=== PATIENT | female | born 1955 | race Caucasian/White ===

== ENCOUNTER → 2016-10-27 | Outpatient (CLI) | payer OTHER ==
[~2016-10-27] MED LIST: ACIDOPHILUS1 EAC3 PO; ASPIRIN81 M2 PO; ASTELIN30 ML; BENICAR HCT 201 EACH PO; BIOTIN2500 MCG PO; CELEBREX 200 M200 M1 PO; CENTRUM SILVER1 EAC4 PO; COLACE100 MG PO; CYMBALTA60 MG PO; DEXILANT60 MG PO; DHEA50 MG PO; ENABLEX 7.5 MG7.5 M1 PO; ENABLEX15 MG PO; ESTRACE; ESTRING1 EACH; ESTRING1 EACH VAG; FENTANYL PATCH75 MCG; FISH OIL 1,0001 EAC5; FOLIC ACID1 MG PO; HYDROCODON-ACE1 EAC5 PO; LEXAPRO20 MG PO; LIPITOR10 MG PO; LIPITOR20 MG PO; LOMOTIL TABLET1 EACH; LYRICA 75 MG CA75 MG PO; METHOTREXATE 22.5 M1 PO; METHOTREXATE 22.5 MG; METHOTREXATE 22.5 MG PO; MS CONTIN15 MG PO; MULTI-VITAMIN1 EAC5 PO; NORCO 10-325 T1 EACH PO; OXYCODONE HCL 55 MG PO; OXYCODONE HCL10 MG PO; OXYCODONE HCL15 MG PO; OXYCODONE HCL5 M1 PO; OXYCONTIN20 M1 PO; PERCOCET 10-321 EACH PO; PHENERGAN 25 MG25 M1 PO; PREDNISONE 5 MG5 M1 PO; REMICADE 1100 MG/VIA IV; TRAMADOL 50 MG50 MG PO; ULTRAM 50MG TAB50 MG PO; VICODIN 5-5001 EACH PO; VITAMIN D1000 UNI1; VITAMIN D32000 UNI1 PO; VITAMIN E400 UNI2 PO; VITAMIN E400 UNI6 PO; VITAMINC500 PO; XELJANZ5 MG PO; [UNRECOGNIZED DRUG - OTHER] VAG
== END ==
LOC: RAD 10:38
DX: M51.26 Other intervertebral disc displacement, lumbar region (principal)

== ENCOUNTER → 2019-05-05 | Outpatient (CLI) | payer OTHER | LOC: CAT 14:52 | DX: Z13.6 Encounter for screening for cardiovascular disorders (principal); E78.00 Pure hypercholesterolemia, unspecified; I25.10 Atherosclerotic heart disease of native coronary artery without angina pectoris ==

== ENCOUNTER 2019-10-13 16:35 | Inpatient (IN) | payer OTHER ==
[~2019-10-13] VITALS: Ht 170.2 cm; Wt 68.9 kg
--- NOTE | ~2019-10-13 | O ---
[facility] [place] [address] OPERATIVE REPORT Name: JOYA BOND Room #: 150-2 ADM IN M.R.#: [id number] Admission: 10/24/19 Attend Phys: Fransisco Perez MD Discharge: Date of : 51 Report #: [id number] THIS REPORT FOR: cc: Giancarlo Medina MD, Mark S. MD Abraham,Fransisco Lott MD ~ CC: Giancarlo Perez DATE OF SERVICE: 10/24/2019 PREOPERATIVE DIAGNOSIS: Left hip stage 4 avascular necrosis. POSTOPERATIVE DIAGNOSIS: Left hip stage 4 avascular necrosis. PROCEDURE: Left total hip arthroplasty. SURGEON: Fransisco Perez MD. COMMERCIAL GREEN BUILDING ARCHITECT: Saloni Pop PA-C. INDICATIONS FOR COMMERCIAL GREEN BUILDING ARCHITECT: Throughout the case, extensive retraction and manipulation of the hip including dislocation and reduction was required. This was afforded to me by my investigative assistant. ANESTHESIA: General. IMPLANTS: Stoner and Nephew size 11 high offset Synergy press fit stem, a size 52 R3 acetabular cup with 1 acetabular screw, a size 36+0 Oxinium head. ESTIMATED BLOOD LOSS: 150 mL. COMPLICATIONS: None. SPECIMENS: None. CONDITION UPON LEAVING THE OPERATING ROOM: Stable. INDICATIONS FOR PROCEDURE: The patient is a 64-year-old female with left hip stage 4 avascular necrosis. She has had increasingly worsening of her pain and failed conservative measures. After discussion with her, she elected for left total hip arthroplasty. DESCRIPTION OF PROCEDURE: Risks, benefits, alternatives, complications were discussed in detail with the patient including but not limited to risk of anesthesia, risk of damage to nerves, arteries, blood vessels, risk for [facility] [address] [place] [address] OPERATIVE REPORT Name: JOYA BOND Room #: 150-2 ADM IN M.R.#: [id number] Admission: 10/24/19 Attend Phys: Fransisco Perez MD Discharge: Date of : 51 Report #: [id number] infection, bleeding, risk for continued hip pain, leg length discrepancy, instability and need for reoperation. Informed consent was obtained from the patient. Left hip was appropriately marked in the preoperative holding area. IV Ancef was given for preoperative antibiotics. She was brought to the operating room and placed in supine position on operating room table. General anesthesia was induced without complication. She was then placed in the right lateral decubitus position with the left hip uppermost. Left hip and lower extremity were prepped and draped in normal sterile fashion. Timeout was performed properly identifying the patient and procedure as well as the instrumentation and implants. All in the operating room were in agreement. Standard posterior approach to the left hip was made with 10 blade through the skin. Dissection was taken down to fascia with Bovie cautery and Bain elevator was used to clean the fascia anteriorly and posteriorly. Fresh 10 blade was used to make a fascial incision. This was taken proximally and distally with curved Martínez scissor. Charnley retractor was placed. Trochanteric bursa was taken down with Bovie cautery. Piriformis tendon was identified, tagged and taken down with Bovie. Short external rotators were also taken down with Bovie cautery. Capsulotomy was made and capsule ends were tagged for later repair. The hip was dislocated. There was no obvious avascular necrosis of the femoral head with severe flattening of the femoral head. Femoral neck cut was made 1 cm proximal to lesser trochanter based on preoperative templating and the femoral head was removed. Deep acetabular retractors were placed. Labrum was removed sharply. Pulvinar was removed with Bovie cautery. Acetabulum was then sequentially reamed up to a size 52, at which point, there was excellent bleeding cancellous bone. A size 51 trial cup was placed, found to have a good fit. A final size 52 R3 acetabular cup was placed and seated. One acetabular screw was placed for backup fixation and a polyethylene liner for a 36 head was placed. Attention was then turned to the femur. A single Accord cable was placed above the level of the lesser trochanter for prophylactic fixation and the femur was reamed and broached up to a size 11. Size 11 broach was stable, was trialed with a high offset neck and a 36+0 head. Hip was reduced, taken through range of motion, found to be stable, found to have equal leg lengths. The hip was dislocated. Broach was removed and final size 11 high offset Synergy press fit stem was placed. Hip was reduced, taken through range of motion, found to be stable, found to have equal leg lengths with the 36+0 head. Hip was dislocated and a final 36+0 Oxinium head was placed. Hip was reduced, taken through range of motion, found to be stable, found to have equal leg lengths. The hip was thoroughly irrigated with normal saline. Periarticular injection consisting of morphine, ropivacaine, epinephrine and Toradol was placed around the hip joint capsule. A gram of vancomycin was placed deep in the hip. The capsule and piriformis were repaired with 0 FiberWire. Fascia was closed with 0 Vicryl, skin was closed with 2-0 Vicryl, 3-0 Monocryl. Karen [address] [address] OPERATIVE REPORT Name: JOYA BOND Room #: 150-2 [facility] IN .R.#: [id number] Admission: 10/24/19 Attend Phys: Fransisco Perez MD Discharge: Date of : 51 Report #: [id number] and a VIKTORIA dressing was applied. The patient tolerated this procedure well and went to recovery room under care of anesthesia postoperatively. By: [id number] Fransisco Perez MD /nt
[~2019-10-13 16:35] MED LIST changes: +AMLODIPINE-OLM1 EAC1 PO; +NORCO 5-325 TA1 EAC1 PO
[2019-10-18 11:17] LABS: HEMATOCRIT 35.6 % (37.0-47.0); HEMOGLOBIN 11.8 gm/dL (12.0-15.0); MCH 31.8 pg (26.0-34.0); MCHC 33.1 g/dL (28.0-37.0); MCV 96.2 fL (80.0-100.0); RBC 3.7 mil/uL (4.20-5.00); RDW 14.3 % (10.5-14.5); WBC 3.5 thou/uL (4.0-11.0)
[2019-10-18 11:19] LABS: URINE BILIRUBIN NEGATIVE (Negative); URINE BLOOD NEGATIVE (Negative); URINE CLARITY CLEAR; URINE COLOR YELLOW; URINE GLUCOSE-RANDOM* NEGATIVE (Negative); URINE KETONES TRACE (Negative); URINE LEUKOCYTES-REFLEX NEGATIVE (Negative); URINE NITRITE-REFLEX NEGATIVE (Negative); URINE PROTEIN (DIPSTICK) NEGATIVE (Negative); URINE SPECIFIC GRAVITY 1.025 (1.005-1.035); URINE UROBILINOGEN 0.2 E.U./dl (0.2-1.0)
[2019-10-18 11:43] LABS: ALBUMIN 3.9 g/dL (3.4-5.0); CREATININE 0.9 mg/dL (0.6-1.0); POTASSIUM 4.2 mmol/L (3.5-5.1); TOTAL BILIRUBIN 0.7 mg/dL (<0.1-1.0); TOTAL PROTEIN 6.6 g/dL (6.4-8.2)
[2019-10-24 00:25] VITALS: BP 136/61
[2019-10-24 08:11] VITALS: BP 141/61
[2019-10-24 16:26] VITALS: BP 117/59
--- NOTE | 2019-10-24 17:55 | NUR ---
PATIENT ADMITTED FROM OR, LEFT TOTAL HIP. VIKTORIA DRESSING IN PLACE. PT/GALINA HERE UPON ARIVAL TO THE UNIT, WORKED WITH PATIENT. PATIENT C/O PAIN WITH LEFT HIP AREA. PATIENT GIVEN OXYCODONE 1 TABLET, PAIN 7/10. PATIENT HAS RIGHT FOREARM IV IN PLACE, WILL START D51/2 NS AT 100CC/HR. VSS. ADMISSION DONE. WILL CONTINUE TO MONITOR.
--- NOTE | 2019-10-24 18:38 | NUR ---
ASSUMED CARE OF THE PATIENT AT 0715, PATIENT ALERT AND ORIENTED. PATIENT C/O PAIN WITH NECK, AND UPPER BACK AREA. TRAMADOL 1 TABLET GIVEN THIS SHIFT. RIGHT AC IV WITH NS AT 100CC/HR. UP WITH GB AND WALKER TO BSC. WILL CONTINUE TO MONITOR.
[2019-10-24 19:38] VITALS: BP 100/52
--- NOTE | 2019-10-25 04:05 | NUR ---
RECIEVED CARE OF THIS PATIENT AT 1900. PATIENT ALERT AND ORIENTED X4. UP WITH ASSIST TO BATHROOM. C/O PAIN, MED GIVEN WITH GOOD RELIEF. DRESSING ON L HIP D/I. ICE PACK APPLIED. IV IN RFA WITH FLUIDS INFUSING. SLEPT MOST OF NIGHT.
[2019-10-25 04:43] VITALS: BP 141/67
[2019-10-25 05:47] LABS: HEMATOCRIT 27.8 % (37.0-47.0); HEMOGLOBIN 9.3 gm/dL (12.0-15.0); MCH 31.7 pg (26.0-34.0); MCHC 33.6 g/dL (28.0-37.0); MCV 94.4 fL (80.0-100.0); RBC 2.94 mil/uL (4.20-5.00); RDW 13.5 % (10.5-14.5); WBC 6.5 thou/uL (4.0-11.0)
[2019-10-25 07:35] VITALS: BP 157/84
--- NOTE | 2019-10-25 12:41 | NUR ---
PT ADMITTED RELATED TO LT TOTAL HIP REPLACEMENT. CM REVIEWED CHART AND SPOKE WITH CARE TEAM. CM CALLED AND SPOKE WITH PT AT BEDSIDE THIS DAY. PT APPEARED TO BE A&O X4. CM ROLE INTRODUCED. PT INDICATED SHE LIVES IN A HOUSE ALONE WITH 3 STEPS TO ENTER AND NONE INSIDE. PT INDICATED SHE HAS A 4WW WITH A SEAT AND A CANE FOR USE AT HOME. PT INDICATED SHE HAD BEEN INDEPENDENT WITH [employer]. PT INDICATED THAT SHE IS ESTABLISHED WITH OP PT TOMORROW. PT INDICATED THAT HER FRIEND WILL BE POVIDING HER TRANSPORT HOME AND WILL BE STAYING WITH HER UPON DC FOR A FEW DAYS. CM SPOKE WITH PT ABOUT MAYBE NEEDING A FWW FOR HOME US. PT IS RECEPTIVE TO PROVIDER PLUS ISSUEING A FWW IF RECOMMENDED. IT IS ANTICIPATED THAT PT WILL DC HOME THIS DAY. CM TO FOLLOW INDICATED WITH DC PLANNING.
--- NOTE | 2019-10-25 14:08 | NUR ---
Assumed care of pt at 0700. Pt a&ox4. Pain controlled with prn pain meds. Up SBA with walker and gait-belt. Will need home walker. Ice pack in place. CHARBEL hose and SCDs in place. PT/OT on the case. Pt will discharge to home after walker is delivered. Fall precautions in place. Will continue to monitor.
[2019-10-25 14:45] VITALS: BP 157/84
== END 2019-10-25 16:00 | disposition home or self-care (01) | DRG 470 ==
LOC: PRE 16:35 → 4S 10-24 07:39 → TBA 10-24 07:39 → PRE 10-24 10:09 → 4S 10-24 15:34 → PRE 11-03 11:06
PROVIDERS: ADMIT Orthopaedic Surgery
PROC: 0SRB06A Replacement of Left Hip Joint with Oxidized Zirconium on Polyethylene Synthetic Substitute, Uncemented, Open Approach (ICD-10-PCS; principal; 2019-10-24)
DX: M87.88 Other osteonecrosis, other site (principal); Z88.8 Allergy status to other drugs, medicaments and biological substances
CPT/HCPCS: 10102; 50010; 50101; 50382; 50414; 53000; 53078; 53368; 54118; 56524; 56527; 56528; 56530; 57095; 57103; 57496; 62110; 62900; 70005

== ENCOUNTER 2020-01-30 09:58 | Observation (INO) | payer OTHER ==
[2020-01-24 12:18] LABS: HEMATOCRIT 31.4 % (37.0-47.0); HEMOGLOBIN 10.4 gm/dL (12.0-15.0); MCH 29.9 pg (26.0-34.0); MCV 90.5 fL (80.0-100.0); RBC 3.47 mil/uL (4.20-5.00); RDW 17.6 % (10.5-14.5); WBC 5.2 thou/uL (4.0-11.0)
[2020-01-24 12:46] LABS: PROTIME 10.3 Seconds (9.3-11.4)
[2020-01-24 13:09] LABS: CREATININE 0.8 mg/dL (0.6-1.0); POTASSIUM 4.6 mmol/L (3.5-5.1)
[2020-01-24 13:37] LABS: URINE BILIRUBIN NEGATIVE (Negative); URINE BLOOD NEGATIVE (Negative); URINE CLARITY CLEAR; URINE COLOR YELLOW; URINE GLUCOSE-RANDOM* NEGATIVE (Negative); URINE KETONES NEGATIVE (Negative); URINE NITRITE-REFLEX NEGATIVE (Negative); URINE PROTEIN (DIPSTICK) NEGATIVE (Negative); URINE UROBILINOGEN 0.2 E.U./dl (0.2-1.0)
[2020-01-24 13:49] LABS: URINE LEUKOCYTES-REFLEX 1+ (Negative)
[2020-01-24 14:43] LABS: CASTS None Seen /LPF (None Seen); SQUAMOUS 0-3 Few /LPF (0-3)
[2020-01-24 14:44] LABS: BACTERIA-REFLEX None Seen /HPF (None Seen); CRYSTALS None Seen /LPF (None Seen); URINE RBC 0-2 Rare /HPF (0-2); URINE WBC-REFLEX 0-5 Rare /HPF (0-5)
[~2020-01-30] VITALS: Ht 170.2 cm; Wt 68.9 kg
--- NOTE | ~2020-01-30 | O ---
[facility] [place] [address] OPERATIVE REPORT Name: JOYA BOND Room #: 440-P [facility] IN M.R.#: [id number] Admission: 02/06/20 Attend Phys: Fransisco Perez MD Discharge: Date of : 51 Report #: [id number] THIS REPORT FOR: cc: Giancarlo Medina MD, Mark S. MD Abraham,Fransisco Lott MD ~ CC: Giancarlo Perez DATE OF SERVICE: 02/06/2020 PREOPERATIVE DIAGNOSIS: Right knee valgus osteoarthritis. POSTOPERATIVE DIAGNOSIS: Right knee valgus osteoarthritis. PROCEDURE: Right total knee arthroplasty using Navio robotic medical technician assistant. SURGEON: Fransisco Perez MD. SHOP STEWARD: Saloni Pop PA-C. INDICATIONS FOR SHOP STEWARD: Throughout the case, extensive retraction and manipulation of the knee was required. This was afforded to me by my medical technician assistant. ANESTHESIA: LMA with an adductor canal block. IMPLANTS: Stoner and Nephew size 6 Journey II BCS cobalt chrome femur, a size 4 tibia, size 9 constrained polyethylene and size 32 patella. TOURNIQUET TIME: 47 minutes. ESTIMATED BLOOD LOSS: 25 mL. COMPLICATIONS: None. SPECIMENS: None. CONDITION UPON LEAVING THE OPERATING ROOM: Stable. INDICATIONS FOR PROCEDURE: The patient is a 65-year-old female with severe right knee valgus and osteoarthritis. She failed conservative measures for this and after discussion with her, she elected for right total knee arthroplasty. DESCRIPTION OF PROCEDURE: Risks, benefits, alternatives, and complications were discussed in detail with the patient including but not limited to risk of anesthesia, risk of damage to nerves, arteries, blood vessels, risk for [facility] [address] [place] [address] OPERATIVE REPORT Name: JOYA BOND Room #: 440-P [facility] IN ..#: [id number] Admission: 02/06/20 Attend Phys: Fransisco Perez MD Discharge: Date of : 53 Report #: [id number] infection, bleeding, risk for continued knee pain, need for reoperation. Informed consent was obtained from the patient. Right knee was appropriately marked in the preoperative holding area. IV Ancef was given for preoperative antibiotics. She was brought to the operating room and placed in supine position on operating room table. LMA anesthesia was induced without complication. Tourniquet was placed on the right thigh. Right lower extremity was prepped and draped in normal sterile fashion. Timeout was performed properly identifying the patient and procedure as well as the instrumentation and implants. All in the operating room were in agreement. Right lower extremity was exsanguinated, tourniquet was inflated. Tourniquet time was 47 minutes. Standard midline approach to the knee was made with 10 blade through the skin. Dissection was taken down sharply to the fascia and deep flaps were developed medially and laterally. Fresh 10 blade was used to make a medial parapatellar arthrotomy and the knee was inspected. There was severe lateral compartment osteoarthritis with moderate medial and patellofemoral involvement. ACL and PCL were removed sharply. Reference pins were placed in the femur and the tibia. The knee was then digitally mapped using the [employer] robotic system. Intraoperative plan was made and we sized the size 6 femur and a size 4 tibia and a 10 spacer. After acceptance of the intraoperative plan, the distal femoral cut was made with a Navio bur. Distal femoral cutting block was pinned in place. Anterior, posterior and chamfer cuts were made. Attention was turned to the tibia. Remainder of the menisci removed with Bovie cautery. Tibial resection guide was pinned in place using the Navio for placement and tibial resection was made. Flexion and extension gaps were then checked and found to have good balance laterally in flexion and extension. She was loose medially. It was felt we could make up for this with a constrained liner. Tibia was sized, found to be a size 4. Size 4 tibial trial was placed, pinned and punched. A size 6 femoral trial was placed and box cut was made. This was then trialed with a size 9 constrained polyethylene. Knee was taken through range of motion, found to have 1-2 millimeter of laxity medially and laterally throughout range of motion of the knee. A 9 mm was resected from the posterior surface of the patella and a size 32 patellar trial button was placed. Knee was taken through range of motion, found to be stable, found to have good patellar tracking. Trial components were removed. Bony ends were thoroughly irrigated with normal saline. A final size 4 tibia, size 6 Journey II BCS cobalt chrome femur and a size 32 patella were cemented in place using standard cementation techniques. While the cement cured, a periarticular injection consisting of morphine, ropivacaine, epinephrine and Toradol was placed around the knee joint capsule. After the cement cured, tourniquet was deflated. Hemostasis was obtained with Bovie cautery. Final size 9 constrained polyethylene was placed. A gram of vancomycin was placed deep in the joint. Fascia was closed with 0 Vicryl, skin was closed with 2-0 Vicryl, skin staple and a VIKTORIA dressing was [address] [address] OPERATIVE REPORT Name: JOYA BOND Room #: 440-P [facility] IN .R.#: [id number] Admission: 02/06/20 Attend Phys: Fransisco Perez MD Discharge: Date of : 51 Report #: [id number] applied. The patient tolerated this procedure well and went to recovery room under care of anesthesia postoperatively. By: [id number] Fransisco Perez MD /nt
[~2020-01-30 09:58] MED LIST changes: +CALCIUM WITH V1 EAC1 PO; +CEFDINIR300 MG PO; +FIBER500 MG PO; -LYRICA 75 MG CA75 MG PO; +LYRICA150 MG PO; +MUPIROCIN22 GM NARES
[2020-02-06] VITALS (8 sets, daily range): BP systolic 101–132; BP diastolic 47–62
--- NOTE | 2020-02-06 18:24 | NUR ---
PATIENT ARRIVED TO UNIT AT 1555. A&OX4, DENIES PAIN. USED BEDPAN BUT UNABLE TO VOID. VOICES NO NEEDS. ADMISSION HX AND EDUCATION COMPLETE. VOICES NO OTHER NEEDS AT THIS TIME
--- NOTE | 2020-02-06 19:50 | NUR ---
PATIENT ADMITTED FROM OR WITH RIGHT TOTAL KNEE, PATIENT HAS VIKTORIA DRESSING, KNEE HIGH CHARBEL ARRIOLA, SCD'S, POLAR PACK. REGULAR DIET ORDERED. PATIENT DENIES PAIN. ADMISSION COMPLETED REPORT GIVEN TO SHOSHANA/RN.
[2020-02-07 03:43] VITALS: BP 150/56
[2020-02-07 05:12] LABS: HEMATOCRIT 23.8 % (37.0-47.0); HEMOGLOBIN 7.8 gm/dL (12.0-15.0); MCHC 32.7 g/dL (28.0-37.0); MCV 88.8 fL (80.0-100.0); RBC 2.68 mil/uL (4.20-5.00); RDW 17.3 % (10.5-14.5); WBC 5.8 thou/uL (4.0-11.0)
--- NOTE | 2020-02-07 05:28 | NUR ---
ASSUMED CARE OF PT AT 1900. PT IS A/O X4. DRSG IS C/D/I. SCD'S, CHARBEL HOSE, AND POLAR PACK ARE IN PLACE. C/O PAIN. PRN PAIN MEDICATION GIVEN DIRECTED. AT THIS TIME, PT IS CURRENTLY LYING IN HER BED AND APPEARS TO BE SLEEPING. WILL CONTINUE TO MONITOR.
[2020-02-07 05:54] LABS: CALCIUM 8.2 mg/dL (8.5-10.1); POTASSIUM 4.4 mmol/L (3.5-5.1)
--- NOTE | 2020-02-07 09:32 | NUR ---
ASSESSMENT: CM REVIEWED CHART AND SPOKE WITH PATIENT. PT IS HERE DUE TO R TKR. PT REPORTS LIVING IN A HOUSE ALONE AND HAS ABOUT 3 STEPS TO ENTER AND NO STEPS ONCE INSIDE. PT REPORTS THAT SHE HAS ALL THE EQUIPTMENT AT HOME THAT SHE WILL NEED INCLUDING A FWW AND CANE SHE REPORTS. SHE ALSO HAS OUTPATIENT THERAPY ARRANGED AT [facility]. PT REPORTS DOING WELL AND DOES NOT FEEL SHE WILL HAVE ANY NEEDS FROM CM. PLANS ARE FOR POSSIBLE DISCHARGE TODAY IF PATIENT PASSES PHYSICAL THERAPY. CM WILL CONTINUE TO FOLLOW TO ASSIST NEEDED.
--- NOTE | 2020-02-07 12:50 | NUR ---
ASSUMED CARE OF PATIENT AT SHIFT CHANGE. ASSESSMENT CHARTED. MEDICATIONS GIVEN PER MAR. VSS. PATIENT IS A&OX4 AND PLEASANT. TODAY IS POSTOP DAY 1. PATIENTS PAIN IS WELL CONTROLLED. NO C/O PAIN AT THE MOMENT. PATIENT GOT UP AND AMBULATED WITH PT AND TOLERATED WELL. PATIENT VOIDED IN TOILET WITH NO ISSUES. PT TO FURTHER WORK WITH PATIENT LATER TODAY. IV FLUIDS INFUSING ON L FA; INTACT W NO S/S OF INFILTRATION OF PHLEBITIS. CHARBEL HOSE IN PLACE & POLAR PACK IN PLACE. VIKTORIA DRESSING C/D/I. FALL PRECAUTIONS IN PLACE; PATIENT CALLS OUT APPROPRIATELY. MAY D/C TODAY; D/C PENDING. WILL CONTINUE TO MONITOR AND FOLLOW POC.
[2020-02-07 15:33] VITALS: BP 150/56
[2020-02-07 15:37] VITALS: BP 150/56
[2020-02-07 16:31] VITALS: BP 150/56
[2020-02-07 16:33] VITALS: BP 150/56
== END 2020-02-07 16:39 | disposition home or self-care (01) ==
LOC: PRE 09:58 → 4S 02-06 10:05 → TBA 02-06 10:05 → 4S 02-06 10:05 → PRE 02-06 10:57 → 4S 02-06 16:15
PROVIDERS: Hospitalist; ADMIT Orthopaedic Surgery; ATTEND Orthopaedic Surgery
DX: M17.11 Unilateral primary osteoarthritis, right knee (principal); M21.061 Valgus deformity, not elsewhere classified, right knee; M54.9 Dorsalgia, unspecified; L03.115 Cellulitis of right lower limb; M87.852 Other osteonecrosis, left femur; Z79.899 Other long term (current) drug therapy
CPT/HCPCS: 10102; 50010; 50101; 50415; 50954; 51130; 51225; 51320; 51412; 52001; 52282; 53000; 53078; 53370; 56527; 56528; 57095; 57103; 57110; 57127; 57180; 58239; 62110; 62900; 70005

== ENCOUNTER → 2020-02-01 | Outpatient (CLI) | payer OTHER | LOC: LAB 11:42 | PROVIDERS: ATTEND Student in an Organized Health Care Education/Training Program | DX: Z01.812 Encounter for preprocedural laboratory examination (principal); Z11.59 Encounter for screening for other viral diseases ==

== ENCOUNTER → 2020-03-07 | Outpatient (CLI) | payer OTHER | LOC: SJCVCIMAG 09:52 → SJCVC 09:52 | PROVIDERS: ATTEND Internal Medicine Cardiovascular Disease | DX: I65.23 Occlusion and stenosis of bilateral carotid arteries (principal); R93.1 Abnormal findings on diagnostic imaging of heart and coronary circulation; I10 Essential (primary) hypertension; E78.00 Pure hypercholesterolemia, unspecified; R09.89 Other specified symptoms and signs involving the circulatory and respiratory systems; R00.0 Tachycardia, unspecified; Z82.3 Family history of stroke; Z82.49 Family history of ischemic heart disease and other diseases of the circulatory system ==

== ENCOUNTER 2020-04-02 18:15 | Inpatient (IN) | payer OTHER ==
[~2020-04-02] VITALS: Ht 170.2 cm; Wt 68.9 kg
[2020-04-02 18:25] VITALS: BP 151/79
[2020-04-02 20:12] LABS: ABSOLUTE NEUTROPHILS 3.3 thou/uL (1.4-8.2); HEMATOCRIT 33.3 % (37.0-47.0); HEMOGLOBIN 11.2 gm/dL (12.0-15.0); LYMPHOCYTES 8.9 % (24.0-44.0); MCHC 33.6 g/dL (28.0-37.0); MCV 89.2 fL (80.0-100.0); MONOCYTES 2.5 % (1.0-8.0); PLATELET COUNT 255 thou/uL (150-400); POLYS 88.6 % (36.0-66.0); RBC 3.74 mil/uL (4.20-5.00); RDW 19.5 % (10.5-14.5); WBC 3.7 thou/uL (4.0-11.0)
[2020-04-02 20:37] LABS: CALCIUM 9.2 mg/dL (8.5-10.1); CREATININE 0.8 mg/dL (0.6-1.0); POTASSIUM 4.8 mmol/L (3.5-5.1)
--- NOTE | 2020-04-02 20:40 | NUR ---
PT MOVED TO RM 5. HOOKED UP TO HEART MONITOR. LAST ATE: 0900 LAST DRANK: 1500, TEA
--- NOTE | 2020-04-02 20:55 | NUR ---
Consent signed by patient at this time
[2020-04-02] MEDS ORDERED: IRON325 M1 PO (21:29)
--- NOTE | 2020-04-02 21:33 | NUR ---
Time out completed. Dr. Joe, This RN, Alycia, RT, and MANNY Alaniz student in room to complete procedure
--- NOTE | 2020-04-02 22:07 | NUR ---
Procedure start time 2133 Procedure end time: 2139. See paper charting for additional documentation and vitals.
--- NOTE | 2020-04-02 22:13 | NUR ---
Pt wide awake. VSS. Will continue to monitor.
[2020-04-03 00:11] LABS: HEMOGLOBIN 10.9 gm/dL (12.0-15.0); MCH 29.6 pg (26.0-34.0); MCHC 33.1 g/dL (28.0-37.0); MCV 89.5 fL (80.0-100.0); RBC 3.69 mil/uL (4.20-5.00); RDW 19.7 % (10.5-14.5); WBC 5.3 thou/uL (4.0-11.0)
[2020-04-03 02:18] VITALS: BP 135/90
[2020-04-03 05:32] LABS: CHOLESTEROL 197 mg/dL (<200); HDL CHOLESTEROL 123 mg/dL (>40); LDL CHOLESTEROL 62 mg/dL (<100); TC:HDL 1.6 Ratio (Not establshd); TRIGLYCERIDE 60 mg/dL (<150); VLDL 12 mg/dL (<40)
[2020-04-03 05:40] LABS: SERUM ASSESSMENT Clear
[2020-04-03 09:00] VITALS: BP 131/57
--- NOTE | 2020-04-03 10:36 | NUR ---
DR. WADDELL RETURNED CALL FROM [place]. STATES THAT PT WILL NEED TO KEEP 1-2 PILLOWS BETWEEN LEGS WHILE RESTING OR SLEEPING. PT TO FOLLOW UP WITH SURGEON IN 1 WEEK.
[2020-04-03 14:52] VITALS: BP 116/58
[2020-04-03 15:57] VITALS: BP 128/57
== END 2020-04-03 15:57 | disposition home or self-care (01) | DRG 560 ==
LOC: ER 18:15 → EROBS 22:27
PROVIDERS: Emergency Medicine; Nurse Practitioner Family; ADMIT Hospitalist; ATTEND Hospitalist
PROC: 0SSBXZZ Reposition Left Hip Joint, External Approach (ICD-10-PCS; principal; 2020-04-02)
DX: T84.021A Dislocation of internal left hip prosthesis, initial encounter (principal); Q60.0 Renal agenesis, unilateral; Y83.8 Other surgical procedures as the cause of abnormal reaction of the patient, or of later complication, without mention of misadventure at the time of the procedure; K21.9 Gastro-esophageal reflux disease without esophagitis; F32.9 Major depressive disorder, single episode, unspecified; E78.5 Hyperlipidemia, unspecified; M06.9 Rheumatoid arthritis, unspecified; Z96.642 Presence of left artificial hip joint; Z96.651 Presence of right artificial knee joint; G89.29 Other chronic pain; Y92.89 Other specified places as the place of occurrence of the external cause; W94.39XA Exposure to other rapid changes in air pressure during descent, initial encounter; Z98.891 History of uterine scar from previous surgery; Z90.710 Acquired absence of both cervix and uterus; Z79.899 Other long term (current) drug therapy; Z88.8 Allergy status to other drugs, medicaments and biological substances

== ENCOUNTER 2020-04-06 16:11 | Emergency (ER) | payer OTHER ==
[~2020-04-06] VITALS: Ht 170.2 cm; Wt 68.5 kg
[~2020-04-06 16:11] MED LIST changes: +IRON325 M1 PO
[2020-04-06 21:07] VITALS: BP 110/53
== END 2020-04-06 21:10 | disposition home or self-care (01) ==
LOC: ER 16:11
DX: S73.015A Posterior dislocation of left hip, initial encounter (principal); Z90.711 Acquired absence of uterus with remaining cervical stump; Z98.890 Other specified postprocedural states; K21.9 Gastro-esophageal reflux disease without esophagitis; E78.5 Hyperlipidemia, unspecified; F32.9 Major depressive disorder, single episode, unspecified; M06.9 Rheumatoid arthritis, unspecified; Z96.642 Presence of left artificial hip joint; Z79.899 Other long term (current) drug therapy; Z88.8 Allergy status to other drugs, medicaments and biological substances; X50.1XXA Overexertion from prolonged static or awkward postures, initial encounter; Y93.89 Activity, other specified; Y92.89 Other specified places as the place of occurrence of the external cause; Y99.8 Other external cause status

== ENCOUNTER 2020-04-29 12:41 | Inpatient (IN) | payer OTHER ==
[~2020-04-29] VITALS: Ht 170.2 cm; Wt 69.9 kg
--- NOTE | ~2020-04-29 | O ---
[facility] [place] [address] OPERATIVE REPORT Name: JOYA BOND Room #: 438-P [facility] IN M.R.#: [id number] Admission: 04/29/20 Attend Phys: Michelle Fernandez MD Discharge: Date of : 51 Report #: [id number] THIS REPORT FOR: cc: Giancarlo Medina MD, Mark S. MD Abraham, Scott M. MD ~ CC: Giancarlo Fernandez DATE OF SERVICE: 04/30/2020 PREOPERATIVE DIAGNOSIS: Recurrent left total hip arthroplasty dislocation. POSTOPERATIVE DIAGNOSIS: Recurrent left total hip arthroplasty dislocation. PROCEDURES: 1. Revision left total hip arthroplasty, head only. 2. Hardware removal cerclage cable, left femur. SURGEON: Fransisco Perez MD. TRAVEL RN: Saloni Pop PA-C. INDICATIONS FOR TRAVEL RN: Throughout the case, extensive retraction and manipulation of the hip including dislocation and reduction was required. This was afforded to me by my assistant passenger locomotive engineer. ANESTHESIA: LMA. IMPLANTS: Stoner and Nephew 36, +4 Oxinium head. ESTIMATED BLOOD LOSS: 10 mL. COMPLICATIONS: None. SPECIMENS: None. CONDITION UPON LEAVING THE OPERATING ROOM: Stable. INDICATIONS FOR PROCEDURE: The patient is a 65-year-old female who is about 6 months out from a left total hip arthroplasty. She has had 2 previous dislocations that were able to be reduced in the Emergency Room; however, yesterday she dislocated the hip again and this was not reducible. After discussion with her, she elected for open reduction and revision as needed. DESCRIPTION OF PROCEDURE: Risks, benefits, alternatives, complications were [facility] [address] [place] [address] OPERATIVE REPORT Name: JOYA BOND Room #: 438-P ADM IN M.R.#: [id number] Admission: 04/29/20 Attend Phys: Michelle Fernandez MD Discharge: Date of : 51 Report #: [id number] discussed in detail with the patient including but not limited to risk of anesthesia, risk of damage to nerves, arteries, blood vessels, risk for infection, bleeding, risk for continued hip pain, leg length discrepancy, continued dislocations and need for reoperation. Informed consent was obtained from the patient and the left hip was appropriately marked in the preoperative holding area. IV Ancef was given for preoperative antibiotics. She was brought to the operating room and placed in supine position on operating room table. LMA anesthesia was induced without complication. She was then placed in the right lateral decubitus position with the left hip uppermost. Left hip and lower extremity were prepped and draped in normal sterile fashion. Timeout was performed properly identifying the patient and procedure as well as the instrumentation and implants. All in the operating room were in agreement. Previous scar was then opened with a 10 blade. Dissection was taken down the fascia with Bovie cautery and deep flaps were developed anteriorly and posteriorly. The fascia was incised and a large hematoma was evacuated. This was taken proximally and distally with Bovie cautery. The hip was obviously dislocated and we reduced the hip in order to check stability of the hip and she was noted to be unstable in extreme flexion, abduction and extreme internal rotation. Hip was dislocated. The head was removed and this was trialed with a 36, +4 head as she previously had a 36, +0 head. Hip was reduced, taken through range of motion and found to be more stable than the +0 head. We were unable to get her hip reduced with a +8 head. It was decided to go ahead and place a 36, +4 Oxinium head. This was placed and seated. Hip was reduced, taken through range of motion, found to be stable. Of note, she had an Accord cerclage cable was placed around the proximal femur and this was palpated and noted to be loose. It was felt that this was not serving any purpose at this point, it could be a source of layer trochanteric bursitis. The cable was cut with the cable cutter and removed. Wound was thoroughly irrigated with normal saline. A periarticular injection consisting of morphine, ropivacaine, epinephrine and Toradol was placed around the hip joint capsule. A gram of vancomycin was placed deep in the joint. Deep capsular closure was performed with 0 FiberWire. Fascia was closed with 0 Vicryl, skin was closed with 2-0 Vicryl, skin staple and a VIKTORIA dressing was applied. The patient tolerated this procedure well and went to recovery room under care of anesthesia postoperatively. By: 25 [id number] Fransisco Perez MD /nt
--- NOTE | ~2020-04-29 | EMS ---
[address] [address] EMS Patient Care Report Name: JEANINE BOND Room #: 170-9 ADM IN M.R.#: [id number] Admission: 04/29/20 Attend Phys: Michelle Fernandez MD Discharge: Date of : 51 Report #: [id number] THIS REPORT FOR: //name// Report Transmitted: 04/29/2020 17:27 EMS Care Summary [facility] MED-ACT Incident [id number] @ 04/29/2020 11:48 Incident Location [address] [place] [address] Patient JEANINE BOND Female, 65 Years 1955 Patient Address [address] [place] [address] Patient History Hypertension (HTN),Hyperlipidemia, Patient Allergies No known allergies, Patient Medications Lyrica, Cymbalta, Tramadol, Celecoxib, Methadone, Chief Complaint I dislocated my left hip Disposition Transported No Lights/[place] Dis[place] Reason Falls Transported To [facility] Narrative Arrived on scene to find a 65 y/o female who was sitting on carpeted floor with her left hand under her left hip, leaning towards her right side. Pt presented alert, with ABC's intact and in obvious discomfort. Pt reports to EMS that she has dislocated her left hip 3 times in the past 3 weeks. Today she reports that [address] [address] EMS Patient Care Report Name: JEANINE BOND Room #: 170-9 ADM IN ..#: [id number] Admission: 04/29/20 Attend Phys: Michelle Fernandez MD Discharge: Date of : 51 Report #: [id number] she bent over to give her ill dog his medication and felt left hip "pop out". Pt reports that this felt exactly like her other 3 instances where her left hip was dislocated. Pt also had obvious left lower extremity inward rotation and shortening. Pt rated her pain at a 9/10 and reported that it increased if she attempted to move. Pt denied any falls or trauma pre or post todays event. Pt denied any other medical complaints and reported that this was isolated to her left hip. 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 Pt was provided IV fentanyl prior to movement and she was lifted off of the floor via scoop stretcher and placed on her right lateral side. Pulses and neuros intact pre and post movement. Pt was transported to ED for further eval and tx. Initial Vitals @12:19P: 93,BP: 127/67,SpO2: 95, @12:18P: 92,SpO2: 98,NM Suspected: false @12:24P: 100,BP: 148/76,SpO2: 97, @12:34P: 102,R: 16,BP: 126/59,Pain: 8/10,GCS: 15,SpO2: 96,Revised Trauma: 12, @11:59P: 98,R: 14,BP: 144/86,Pain: 8/10,GCS: 15,Temp: 97.5F,SpO2: 99,Revised Trauma: 12, Assessments @11:58MENTAL:No Abnormalities,SKIN:No Abnormalities,HEENT:Head/Face: No Abnormalities,Eyes: No Abnormalities,Neck/Airway: No Abnormalities,LUNG SOUNDS:ABDOMEN:PELVIS//GI:Tenderness,Pelvis Other,EXTREMITIES:Left Leg: Other,Left Arm: No Abnormalities,Right Arm: No Abnormalities,Right Leg: No Abnormalities,PULSE:NEURO: Impression Injury Procedures @12:18Fentanyl - 50 Micrograms (mcg) - Intravenous (IV)Response: Improved@12:05Saline Lock 10cc (20 ga) Site: Antecubital-RightResponse: UnchangedSucceeded@12:07Fentanyl - 100 Micrograms (mcg) - Intravenous (IV)Response: Improved@12:25Fentanyl - 25 Micrograms (mcg) - Intravenous (IV)Response: Improved@12:35Fentanyl - 25 Micrograms (mcg) - Intravenous (IV)Response: Improved Timeline 11:46,Call Received 11:46,Psap Call 11:48,Dispatched 11:48,En Route 11:55,On Scene 11:57,At Patient 11:59,BP: 144/86 M,PULSE: 98,RR: 14 R,SPO2: 99 Ox,ETCO2: ,BG: ,PAIN: 8,GCS: 15, 12:05,Saline Lock 10cc 20 ga Site: Antecubital-Right,Response: [facility] [address] [place] [address] EMS Patient Care Report Name: JEANINE BOND Room #: 170-9 ADM IN M.R.#: [id number] Admission: 04/29/20 Attend Phys: Michelle Fernandez MD Discharge: Date of : 51 Report #: [id number] UnchangedSucceeded, 12:07,Fentanyl - 100 Micrograms (mcg) - Intravenous (IV),Response: Improved 12:18,Fentanyl - 50 Micrograms (mcg) - Intravenous (IV),Response: Improved 12:18,BP: / M,PULSE: 92,RR: R,SPO2: 98 Ox,ETCO2: ,BG: ,PAIN: ,GCS: , 12:19,BP: 127/67 M,PULSE: 93,RR: R,SPO2: 95 Ox,ETCO2: ,BG: ,PAIN: ,GCS: , 12:20,Depart Scene 12:24,BP: 148/76 M,PULSE: 100,RR: R,SPO2: 97 Ox,ETCO2: ,BG: ,PAIN: ,GCS: , 12:25,Fentanyl - 25 Micrograms (mcg) - Intravenous (IV),Response: Improved 12:34,BP: 126/59 M,PULSE: 102,RR: 16 R,SPO2: 96 Ox,ETCO2: ,BG: ,PAIN: 8,GCS: 15, 12:35,Fentanyl - 25 Micrograms (mcg) - Intravenous (IV),Response: Improved 12:35,At Destination 12:58,Call Closed Disclaimer v1.1 Copyright 2020 [employer] This EMS Care Summary contains data elements from the applicable legal record (which may be displayed differently). It is designed to provide pertinent information for the following purposes: continuity of care, clinical quality, and state data reporting. The complete legal record is available to ED staff and administrators of the receiving hospital in [employer] Patient Tracker. All data is provided "as is."
[2020-04-29 12:41] VITALS: BP 128/50
[2020-04-29 13:52] LABS: ABSOLUTE NEUTROPHILS 3.5 thou/uL (1.4-8.2); BASOPHILS 0.3 % (0.0-2.0); EOSINOPHILS 2.6 % (0.0-3.0); HEMATOCRIT 37.4 % (37.0-47.0); HEMOGLOBIN 12.4 gm/dL (12.0-15.0); LYMPHOCYTES 14.8 % (24.0-44.0); MCHC 33.1 g/dL (28.0-37.0); MCV 90.9 fL (80.0-100.0); MONOCYTES 5.8 % (1.0-8.0); PLATELET COUNT 281 thou/uL (150-400); POLYS 76.5 % (36.0-66.0); RBC 4.11 mil/uL (4.20-5.00); RDW 19.5 % (10.5-14.5); WBC 4.6 thou/uL (4.0-11.0)
[2020-04-29 14:11] LABS: CALCIUM 9.2 mg/dL (8.5-10.1); CREATININE 1.1 mg/dL (0.6-1.0)
[2020-04-29 14:59] LABS: ANISOCYTOSIS 1+
[2020-04-29 17:48] LABS: PROTIME 10.3 Seconds (9.3-11.4)
[2020-04-29 18:13] VITALS: BP 125/64
--- NOTE | 2020-04-29 18:48 | NUR ---
1ST ATTEMPT TO GIVE INPATIENT REPORT, UNIT UNSURE OF ASSIGNED RN. WILL RETURN ANA.
[2020-04-29] MEDS ORDERED: LYRICA150 MG PO (18:53)
[2020-04-29] MEDS ORDERED: XELJANZ5 MG PO (18:54)
[2020-04-29 19:32] VITALS: BP 123/42
[2020-04-29 20:38] VITALS: BP 147/63
[2020-04-30 00:23] VITALS: BP 115/45
[2020-04-30 04:54] VITALS: BP 97/54
[2020-04-30 06:08] LABS: ABSOLUTE NEUTROPHILS 2.2 thou/uL (1.4-8.2); BASOPHILS 0.1 % (0.0-2.0); EOSINOPHILS 4.1 % (0.0-3.0); HEMATOCRIT 31.7 % (37.0-47.0); HEMOGLOBIN 10.5 gm/dL (12.0-15.0); LYMPHOCYTES 31.2 % (24.0-44.0); MCH 30.5 pg (26.0-34.0); MCHC 33.3 g/dL (28.0-37.0); MCV 91.7 fL (80.0-100.0); MONOCYTES 9.2 % (1.0-8.0); PLATELET COUNT 226 thou/uL (150-400); POLYS 55.4 % (36.0-66.0); RBC 3.45 mil/uL (4.20-5.00); RDW 19.5 % (10.5-14.5); WBC 4.1 thou/uL (4.0-11.0)
[2020-04-30 06:16] LABS: CALCIUM 8.4 mg/dL (8.5-10.1); CREATININE 1.1 mg/dL (0.6-1.0); MAGNESIUM 2.2 mg/dL (1.8-2.4); PHOSPHORUS 4.9 mg/dL (2.5-4.9); POTASSIUM 4.3 mmol/L (3.5-5.1)
--- NOTE | 2020-04-30 06:20 | NUR ---
PT AOX4. PT REPORTS 7-9/10 PAIN IN LEFT HIP, NOTED TO WORSEN WITH TACTILE STIMULATION AND MOVEMENT. PT RECEIVING SCHEDULED PO OXYCODONE, PRN IV FENTANYL Q4HR, AND PRN IV MORPHINE Q4HR. PT TOLERATING PO INTAKE OF FLUIDS AND REGULAR DIET, NPO AT MIDNIGHT. 16FR LOPEZ INSERTED WITHOUT ISSUE, REMAINS PATENT. PT REMAINS IN BED THROUGHOUT SHIFT, FREQUENT REPOSITIONING ENCOURAGED. PT NOTED TO SHIFT INDEPENDENTLY WHILE IN BED. PT NOTIFIED STAFF OF ITCHING ALL OVER. UPON INVESTIGATING, PT REPORTS SHE BECOMES ITCHY AFTER MULTIPLE DOSES OF MORPHINE, DENIES ALLERGY AND ADVERSE EFFECTS. 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 PT ENCOURAGED TO NOTIFY STAFF FOR ALL NEEDS, CALL LIGHT WITHIN REACH, BED ALARM ON, BED IN LOWEST POSITION, FREQUENT MONITORING WILL CONTINUE.
--- NOTE | 2020-04-30 07:46 | EKG ---
[facility] [place] [address] ELECTROCARDIOGRAM REPORT Name: JEANINE BOND Room #: 438-P ADM IN M.R.#: [id number] Admission: 04/29/20 Attend Phys: Michelle Fernandez MD Discharge: Date of : 51 Report #: [id number] THIS REPORT FOR: cc: Giancarlo Medina MD, Mark S. 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
[2020-04-30 08:00] VITALS: BP 94/45
--- NOTE | 2020-04-30 10:35 | NUR ---
PATIENT IS IN BED WATCHING TV. HAS LEFT HIP REVISION SCEDULE THIS AFTERNOON WITH DR DUARTE. HAS REMAINED NPO. TOOK AM MEDS WITH SIPS OF WATER PER PRE OP. WILL GET IV ABT XS1 IN PRE-OP PER SURGERT PHARMACY CHANGED TIME ON AUG. PT IS ALERT XS 4 AND PLEASANT AND COOPERATIVE WITH CARE.
--- NOTE | 2020-04-30 14:37 | NUR ---
cm completed the initial assessment. pt a&o. pt independent w/cares and active. pt admitted d/t dislocated hip. pt sched for revision surgery tommorow. pt is current w/[facility] outpt therapy. pt plan resumption of care w/[facility]. pt has fww and cane. 3 steps to entry, pt has stairs inside, put states, "i dont use them...there is enough space on the main level so I stay down there." cm to cont to follow.
--- NOTE | 2020-04-30 15:27 | NUR ---
PATIENT LEFT UNIT FOR PRE-OP DR DUARTE TO DO LEFT TOTAL HIP ARTHOPLASTY. PT NO PAIN OR RESP DISTRESS AT THIS TIME.
[2020-04-30 19:45] VITALS: BP 109/44
[2020-05-01 04:28] VITALS: BP 110/65
[2020-05-01 05:59] LABS: HEMATOCRIT 33.7 % (37.0-47.0); MCH 30.1 pg (26.0-34.0); MCHC 32.8 g/dL (28.0-37.0); MCV 91.8 fL (80.0-100.0); RBC 3.67 mil/uL (4.20-5.00); RDW 18.6 % (10.5-14.5); WBC 3.8 thou/uL (4.0-11.0)
--- NOTE | 2020-05-01 06:48 | NUR ---
PT TRANSFERRED FROM SURGERY AT 1945. PT DROWSY, AOX4. PT DENIES PAIN AND SOB WHILE ON ROOM AIR. PT RESTING IN BED THROUGHOUT SHIFT, MAINTAINING STRICT HIP PRECAUTIONS WITH ABDUCTOR PILLOW. FREQUENT REPOSITIONING ENCOURAGED, PT REFUSING REPOSITIONING ASSISTANCE DUE TO REPORTS OF COMFORT. PT TOLERATING PO INTAKE OF FLUIDS AND REGULAR DIET. PT WITHOUT NAUSEA. PT ENCOURAGED TO NOTIFY STAFF FOR ALL NEEDS, CALL LIGHT WITHIN REACH, BED ALARM ON, BED IN LOWEST POSITION, FREQUENT MONITORING WILL CONTINUE.
[2020-05-01 07:30] VITALS: BP 127/67
--- NOTE | 2020-05-01 09:22 | NUR ---
pt. up to chair and walking down the vieira with physical therapy. Gait belt and walker assist denies pain request oxy before physical therapy 08/29 d/c'd lucía suggest bedside commode tolerating pain and mobility very well. Worried about frequent exposure to covid in the hospital and want to be home oneil. assured that she is safe but will be home soon.
--- NOTE | 2020-05-01 12:11 | NUR ---
I have reviewed the student documentation.
[2020-05-01 14:48] VITALS: BP 127/67
--- NOTE | 2020-05-01 16:30 | NUR ---
PT ASSESSED AT START OF SHIFT. PAIN WELL CONTROLLED W/ PAIN MEDS. AMBULATING STEADY W/ WALKER. LT HIP DSNG D&I. UP TO THE CHAIR FOR FEW HOURS. TO START THERAPY ON THURSDAY. DISCHARGED AT THIS TIME. PT LEFT WATCH,RING AND NECKLACE IN . 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
== END 2020-05-01 17:44 | disposition home or self-care (01) | DRG 464 ==
LOC: ER 12:41 → EROBS 17:25 → 4S 17:25
PROVIDERS: Emergency Medicine; Orthopaedic Surgery; ADMIT Internal Medicine; ATTEND Internal Medicine
PROC: 0SWS0JZ Revision of Synthetic Substitute in Left Hip Joint, Femoral Surface, Open Approach (ICD-10-PCS; principal; 2020-04-30)
PROC: 0SPS0JZ Removal of Synthetic Substitute from Left Hip Joint, Femoral Surface, Open Approach (ICD-10-PCS; principal; 2020-04-30)
DX: S73.015A Posterior dislocation of left hip, initial encounter (principal); Q79.69 Other Ehlers-Danlos syndromes; K21.9 Gastro-esophageal reflux disease without esophagitis; F32.9 Major depressive disorder, single episode, unspecified; M06.9 Rheumatoid arthritis, unspecified; Z96.642 Presence of left artificial hip joint; N18.30 Chronic kidney disease, stage 3 unspecified; M24.452 Recurrent dislocation, left hip; Z60.2 Problems related to living alone; I11.0 Hypertensive heart disease with heart failure; D50.9 Iron deficiency anemia, unspecified; Z20.828 Contact with and (suspected) exposure to other viral communicable diseases; Z90.710 Acquired absence of both cervix and uterus; Z90.722 Acquired absence of ovaries, bilateral; Z88.8 Allergy status to other drugs, medicaments and biological substances; Z82.49 Family history of ischemic heart disease and other diseases of the circulatory system; Z80.3 Family history of malignant neoplasm of breast; Z79.82 Long term (current) use of aspirin; Z79.899 Other long term (current) drug therapy
CPT/HCPCS: 10195; 50010; 50101; 50414; 50915; 51412; 56524; 56528; 56530; 57095; 57103; 57116; 58138; 58379; 62110; 62900; 70005

== ENCOUNTER 2020-06-16 17:34 | Emergency (ER) | payer OTHER ==
[~2020-06-16] VITALS: Ht 170.2 cm; Wt 68.0 kg
[~2020-06-16 17:34] MED LIST changes: +BACTRIM DS TAB1 EACH PO
[2020-06-16 21:24] VITALS: BP 112/50
== END 2020-06-16 21:27 | disposition home or self-care (01) ==
LOC: ER 17:34
DX: S73.015A Posterior dislocation of left hip, initial encounter (principal); S73.035A Other anterior dislocation of left hip, initial encounter; Z79.899 Other long term (current) drug therapy; Z79.2 Long term (current) use of antibiotics; Z88.8 Allergy status to other drugs, medicaments and biological substances; Z96.643 Presence of artificial hip joint, bilateral; X50.1XXA Overexertion from prolonged static or awkward postures, initial encounter; Y93.89 Activity, other specified; Y92.89 Other specified places as the place of occurrence of the external cause; Y99.8 Other external cause status

== ENCOUNTER 2020-07-04 19:46 | Inpatient (IN) | payer OTHER ==
[2020-07-04] VITALS (7 sets, daily range): BP systolic 113–132; BP diastolic 47–63
[~2020-07-04] VITALS: Ht 170.2 cm; Wt 89.4 kg
--- NOTE | ~2020-07-04 | EMS ---
[facility] [address] [place] [address] EMS Patient Care Report Name: JOYA BOND Room #: 244-P ADM IN M.R.#: [id number] Admission: 07/04/20 Attend Phys: Barry Huang MD Discharge: Date of : 51 Report #: [id number] THIS REPORT FOR: //name// Report Transmitted: 07/05/2020 06:36 EMS Care Summary [facility] MED-ACT Incident [id number] @ 07/04/2020 18:31 Incident Location [address] [place] [address] Patient JOYA BOND Female, 65 Years 1955 Patient Address [address] [place] [address] Patient History Hypertension (HTN),Gastro-Esophageal Reflux Disease (GERD),Rheumatoid Arthritis, Patient Allergies No known allergies, Patient Medications Other, Prednisone, Tylenol, Omeprazole, Celebrex, Chief Complaint Patient developed congestion Disposition Transported No Lights/[place] Dispatch Reason Unconscious/Fainting Transported To [facility] Narrative Arrived to be greeted by the patient's daughter stating the patient's granddaughter was diagnosed with COVID-19 today and her daughter believes the grandmother gave it to her. We walked in the house to find the patient lying in bed with the lights out and she has not really been out of bed for the last [facility] [address] [place] [address] EMS Patient Care Report Name: JOYA BOND Room #: 244-P [facility] IN [facility]#: [id number] Admission: 07/04/20 Attend Phys: Barry Huang MD Discharge: Date of : 51 Report #: [id number] two days. The patient's symptoms started on Thursday with a headache, congestion, and a cough. The patient has been taking Tylenol for her cough and has been coughing up sputum that is an unknown color. On Thursday the patient went and received the Moderna, COVID-19 vaccine and she states she has been feeling pretty horrible since then. Since Thursday the patient has been extremely fatigued and has had no energy. The patient believes she has been urinating less frequently and has not been eating or drinking much. The patient denies having any nausea/vomiting/diarrhea, lost of taste and smell, or having a fever. A: See assessment tab. Surgical mask placed on the patient. Physical exam. Vital signs. We had a hard time getting a good waveform due to the patient having acrylic nails. At times the patient's oxygen was in the 70s on room air and it also would drop into the 50s. We placed the patient on an ETCO2 NC which improved her oxygen into the 80s. The patient had a thick cough so we sat the patient up and sat her on her walker and administered a breathing treatment in the house via a mask and the patient's oxygen improved into the upper 90s while receiving the treatment. The monitor was turned away from the patient, we covered the nebulizer mask with a surgical mask and kept our distance from the patient while she received a breathing treatment. Patient was able to walk with the cannula to the cot. Patient's color did not look dusky while on oxygen. Moved to unit. En route to [facility]. Vital signs and ECG were monitored during transport. Patient's oxygen was decreased from the mask and she quickly became hypoxic again after the breathing treatment was stopped. Patient's oxygen was increased to six liters and we still had problems getting a good consistent waveform during transport. We contacted [facility] on the [employer] radio. Two unsuccessful IV attempts were made en route to the hospital. The patient's venous blood appeared to be very dark. Patient was switched to a NRB because her O2 sats were maintaining back in the middle 80s. The patient appeared to have a minor increase in her work of breathing. Patient was alert with stable vital signs upon arrival at [facility]. Patient care was transferred to an ED RN in room 16 at [facility] and the cot sheet was utilized to transfer patient care. Patient requested ambulance transport to [facility]. Initial Vitals @19:20P: 110,R: 20,BP: 124/79,GCS: 15,SpO2: 77,Revised Trauma: 12,IA Suspected: false @19:04P: 116,R: 20,GCS: 15,EtCO2: 28,SpO2: 95,IA Suspected: false @18:50P: 115,R: 15,Pain: 0/10,GCS: 15,EtCO2: 28,SpO2: 85, @18:39P: 105,R: 20,BP: 137/72,Pain: 0/10,GCS: 15,Temp: 98.4F,SpO2: 72,Revised Trauma: 12,IA Suspected: false [facility] [address] [place] [address] EMS Patient Care Report Name: JOYA BOND Room #: 244-P ADM IN M.R.#: [id number] Admission: 07/04/20 Attend Phys: Barry Huang MD Discharge: Date of : 51 Report #: [id number] @18:59P: 69,R: 24,BP: 130/75,Pain: 0/10,GCS: 15,EtCO2: 29,SpO2: 83,Revised Trauma: 12,IA Suspected: false Assessments @18:37MENTAL:Person Oriented,Place Oriented,Event Oriented,Time Oriented,SKIN:Cyanotic,Pale,HEENT:Eyes: Left Pupil: 4-mm,Eyes: Right Pupil: 4-mm,LUNG SOUNDS:ABDOMEN:PELVIS//GI:EXTREMITIES:Left Arm: No Abnormalities,Right Arm: No Abnormalities,Left Leg: No Abnormalities,Right Leg: No Abnormalities,PULSE:Radial: 2+ Normal,NEURO: Impression COVID-19 - Exposure to confirmed patient Procedures @18:50Albuterol - 2.5 Milligrams (mg) - NebulizedResponse: Improved@18:50Ipratropium - 0.5 Milligrams (mg) - NebulizedResponse: Improved@18:38Oxygen FlowRate: 4 Device: CO2 Nasal Cannula Response: ImprovedSucceeded@19:30Oxygen FlowRate: 10 Device: Non Re-breather Mask (NRB) Response: ImprovedSucceeded@19:27Normal Saline (.9% NaCl) 0cc (18 ga) Site: Antecubital-RightResponse: UnchangedFailed@19:23Normal Saline (.9% NaCl) 0cc (18 ga) Site: Antecubital-LeftResponse: UnchangedFailed@18:37Surgical Mask on PatientResponse: Unchanged Timeline 18:29,Call Received 18:29,Psap Call 18:31,Dispatched 18:31,En Route 18:31,On Scene 18:36,At Patient 18:37,Surgical Mask on Patient,Response: Unchanged 18:38,Oxygen FlowRate: 4 Device: CO2 Nasal Cannula Response: ImprovedSucceeded, 18:39,BP: 137/72 M,PULSE: 105,RR: 20 R,SPO2: 72 Ox,ETCO2: ,BG: ,PAIN: 0,GCS: 15, 18:50,Albuterol - 2.5 Milligrams (mg) - Nebulized,Response: Improved 18:50,Ipratropium - 0.5 Milligrams (mg) - Nebulized,Response: Improved 18:50,BP: / M,PULSE: 115,RR: 15 R,SPO2: 85 Ox,ETCO2: 28 ,BG: ,PAIN: 0,GCS: 15, 18:59,BP: 130/75 M,PULSE: 69,RR: 24 R,SPO2: 83 Ox,ETCO2: 29 ,BG: ,PAIN: 0,GCS: 15, 19:04,BP: / M,PULSE: 116,RR: 20 R,SPO2: 95 Ox,ETCO2: 28 ,BG: ,PAIN: ,GCS: 15, 19:20,BP: 124/79 M,PULSE: 110,RR: 20 R,SPO2: 77 Ox,ETCO2: ,BG: ,PAIN: ,GCS: 15, 19:21,Depart Scene 19:23,Normal Saline (.9% NaCl) 0cc 18 ga Site: Antecubital-Left,Response: UnchangedFailed, 19:27,Normal Saline (.9% NaCl) 0cc 18 ga Site: Antecubital-Right,Response: UnchangedFailed, [facility] [address] [place] [address] EMS Patient Care Report Name: JOYA BOND Room #: 244-P [facility] IN M.R.#: [id number] Admission: 07/04/20 Attend Phys: Barry Huang MD Discharge: Date of : 51 Report #: [id number] 19:30,Oxygen FlowRate: 10 Device: Non Re-breather Mask (NRB) Response: ImprovedSucceeded, 19:35,At Destination 20:17,Call Closed Disclaimer v1.1 Copyright 2020 [employer] This EMS Care Summary contains data elements from the applicable legal record (which may be displayed differently). It is designed to provide pertinent information for the following purposes: continuity of care, clinical quality, and state data reporting. The complete legal record is available to ED staff and administrators of the receiving hospital in [facility]'s Patient Tracker. All data is provided "as is."
--- NOTE | ~2020-07-04 | EMS ---
[facility] [address] [place] [address] EMS Patient Care Report Name: JOYA BOND Room #: 241-P ADM IN M.R.#: [id number] Admission: 07/04/20 Attend Phys: Sina Garcia MD Discharge: Date of : 51 Report #: [id number] THIS REPORT FOR: //name// Report Transmitted: 08/13/2020 15:13 EMS Care Summary [facility] MED-ACT Incident [id number] @ 07/04/2020 18:31 Incident Location [address] [place] [address] Patient JOYA BOND Female, 65 Years 1955 Patient Address [address] [place] [address] Patient History Hypertension (HTN),Gastro-Esophageal Reflux Disease (GERD),Rheumatoid Arthritis, Patient Allergies No known allergies, Patient Medications Other, Prednisone, Tylenol, Omeprazole, Celebrex, Chief Complaint Patient developed congestion Disposition Transported No Lights/[place] Reason Unconscious/Fainting Transported To [facility] Narrative Arrived to be greeted by the patient's daughter stating the patient's granddaughter was diagnosed with COVID-19 today and her daughter believes the grandmother gave it to her. We walked in the house to find the patient lying in bed with the lights out and she has not really been out of bed for the last [facility] [address] [place] [address] EMS Patient Care Report Name: JOYA BOND Room #: 241-P [facility] IN ..#: [id number] Admission: 07/04/20 Attend Phys: Sina Garcia MD Discharge: Date of : 51 Report #: [id number] two days. The patient's symptoms started on Thursday with a headache, congestion, and a cough. The patient has been taking Tylenol for her cough and has been coughing up sputum that is an unknown color. On Thursday the patient went and received the Moderna, COVID-19 vaccine and she states she has been feeling pretty horrible since then. Since Thursday the patient has been extremely fatigued and has had no energy. The patient believes she has been urinating less frequently and has not been eating or drinking much. The patient denies having any nausea/vomiting/diarrhea, lost of taste and smell, or having a fever. A: See assessment tab. Surgical mask placed on the patient. Physical exam. Vital signs. We had a hard time getting a good waveform due to the patient having acrylic nails. At times the patient's oxygen was in the 70s on room air and it also would drop into the 50s. We placed the patient on an ETCO2 NC which improved her oxygen into the 80s. The patient had a thick cough so we sat the patient up and sat her on her walker and administered a breathing treatment in the house via a mask and the patient's oxygen improved into the upper 90s while receiving the treatment. The monitor was turned away from the patient, we covered the nebulizer mask with a surgical mask and kept our distance from the patient while she received a breathing treatment. Patient was able to walk with the cannula to the cot. Patient's color did not look dusky while on oxygen. Moved to unit. En route to [facility]. Vital signs and ECG were monitored during transport. Patient's oxygen was decreased from the mask and she quickly became hypoxic again after the breathing treatment was stopped. Patient's oxygen was increased to six liters and we still had problems getting a good consistent waveform during transport. We contacted [facility] on the [facility] radio. Two unsuccessful IV attempts were made en route to the hospital. The patient's venous blood appeared to be very dark. Patient was switched to a NRB because her O2 sats were maintaining back in the middle 80s. The patient appeared to have a minor increase in her work of breathing. Patient was alert with stable vital signs upon arrival at [facility]. Patient care was transferred to an ED RN in room 16 at [facility] and the cot sheet was utilized to transfer patient care. Patient requested ambulance transport to [facility]. Initial Vitals @19:20P: 110,R: 20,BP: 124/79,GCS: 15,SpO2: 77,Revised Trauma: 12,KS Suspected: false @19:04P: 116,R: 20,GCS: 15,EtCO2: 28,SpO2: 95,KS Suspected: false @18:50P: 115,R: 15,Pain: 0/10,GCS: 15,EtCO2: 28,SpO2: 85, @18:39P: 105,R: 20,BP: 137/72,Pain: 0/10,GCS: 15,Temp: 98.4F,SpO2: 72,Revised Trauma: 12,KS Suspected: false [facility] [address] [place] [address] EMS Patient Care Report Name: JOYA BOND Room #: 241-P [facility] IN M.R.#: [id number] Admission: 07/04/20 Attend Phys: Sina Garcia MD Discharge: Date of : 51 Report #: [id number] @18:59P: 69,R: 24,BP: 130/75,Pain: 0/10,GCS: 15,EtCO2: 29,SpO2: 83,Revised Trauma: 12,KS Suspected: false Assessments @18:37MENTAL:Person Oriented,Place Oriented,Event Oriented,Time Oriented,SKIN:Cyanotic,Pale,HEENT:Eyes: Left Pupil: 4-mm,Eyes: Right Pupil: 4-mm,LUNG SOUNDS:ABDOMEN:PELVIS//GI:EXTREMITIES:Left Arm: No Abnormalities,Right Arm: No Abnormalities,Left Leg: No Abnormalities,Right Leg: No Abnormalities,PULSE:Radial: 2+ Normal,NEURO: Impression COVID-19 - Exposure to confirmed patient Procedures @18:50Albuterol - 2.5 Milligrams (mg) - NebulizedResponse: Improved@18:50Ipratropium - 0.5 Milligrams (mg) - NebulizedResponse: Improved@18:38Oxygen FlowRate: 4 Device: CO2 Nasal Cannula Response: ImprovedSucceeded@19:30Oxygen FlowRate: 10 Device: Non Re-breather Mask (NRB) Response: ImprovedSucceeded@19:27Normal Saline (.9% NaCl) 0cc (18 ga) Site: Antecubital-RightResponse: UnchangedFailed@19:23Normal Saline (.9% NaCl) 0cc (18 ga) Site: Antecubital-LeftResponse: UnchangedFailed@18:37Surgical Mask on PatientResponse: Unchanged Timeline 18:29,Call Received 18:29,Psap Call 18:31,Dispatched 18:31,En Route 18:31,On Scene 18:36,At Patient 18:37,Surgical Mask on Patient,Response: Unchanged 18:38,Oxygen FlowRate: 4 Device: CO2 Nasal Cannula Response: ImprovedSucceeded, 18:39,BP: 137/72 M,PULSE: 105,RR: 20 R,SPO2: 72 Ox,ETCO2: ,BG: ,PAIN: 0,GCS: 15, 18:50,Albuterol - 2.5 Milligrams (mg) - Nebulized,Response: Improved 18:50,Ipratropium - 0.5 Milligrams (mg) - Nebulized,Response: Improved 18:50,BP: / M,PULSE: 115,RR: 15 R,SPO2: 85 Ox,ETCO2: 28 ,BG: ,PAIN: 0,GCS: 15, 18:59,BP: 130/75 M,PULSE: 69,RR: 24 R,SPO2: 83 Ox,ETCO2: 29 ,BG: ,PAIN: 0,GCS: 15, 19:04,BP: / M,PULSE: 116,RR: 20 R,SPO2: 95 Ox,ETCO2: 28 ,BG: ,PAIN: ,GCS: 15, 19:20,BP: 124/79 M,PULSE: 110,RR: 20 R,SPO2: 77 Ox,ETCO2: ,BG: ,PAIN: ,GCS: 15, 19:21,Depart Scene 19:23,Normal Saline (.9% NaCl) 0cc 18 ga Site: Antecubital-Left,Response: UnchangedFailed, 19:27,Normal Saline (.9% NaCl) 0cc 18 ga Site: Antecubital-Right,Response: UnchangedFailed, [facility] [address] [place] [address] EMS Patient Care Report Name: JOYA BOND Room #: 241-P ADM IN M.R.#: [id number] Admission: 07/04/20 Attend Phys: Sina Garcia MD Discharge: Date of : 51 Report #: [id number] 19:30,Oxygen FlowRate: 10 Device: Non Re-breather Mask (NRB) Response: ImprovedSucceeded, 19:35,At Destination 20:17,Call Closed Disclaimer v1.1 Copyright 2020 [employer] This EMS Care Summary contains data elements from the applicable legal record (which may be displayed differently). It is designed to provide pertinent information for the following purposes: continuity of care, clinical quality, and state data reporting. The complete legal record is available to ED staff and administrators of the receiving hospital in [facility]'s Patient Tracker. All data is provided "as is."
--- NOTE | 2020-07-04 19:52 | NUR ---
PT STILL 88% ON NRB. PRONED AT THIS TIME
[2020-07-04 20:02] LABS: HEMATOCRIT 38.4 % (37.0-47.0); HEMOGLOBIN 12.8 gm/dL (12.0-15.0); MCH 30.2 pg (26.0-34.0); MCHC 33.2 g/dL (28.0-37.0); PLATELET COUNT 216 thou/uL (150-400); RBC 4.22 mil/uL (4.20-5.00); RDW 16.3 % (10.5-14.5); WBC 3.5 thou/uL (4.0-11.0)
[2020-07-04 20:25] LABS: ANION GAP 17 mmol/L (7-16); BUN 18 mg/dL (7-18); CALCIUM 9.1 mg/dL (8.5-10.1); CHLORIDE 99 mmol/L (98-107); CO2 21 mmol/L (21-32); CREATININE 1.2 mg/dL (0.6-1.0); GLUCOSE 145 mg/dL (74-106); POTASSIUM 4.4 mmol/L (3.5-5.1); SODIUM 137 mmol/L (136-145)
[2020-07-04 20:30] LABS: ALBUMIN 3.2 g/dL (3.4-5.0); DIRECT BILIRUBIN < 0.1 mg/dL (<0.1-0.2); SGOT 67 U/L (15-37); SGPT 33 U/L (30-65); TOTAL BILIRUBIN 0.4 mg/dL (0.2-1.0); TOTAL PROTEIN 7.3 g/dL (6.4-8.2); TROPONIN-I <0.06 ng/mL (<0.06)
[2020-07-04 20:39] LABS: HCO3 19.5 mmol/L (22.0-26.0); PO2 80.8 mmHg (80.0-100.0); pH 7.417 (7.360-7.450); sO2 96.2 % (92.0-98.0)
[2020-07-04 21:13] LABS: ABSOLUTE NEUTROPHILS 2.7 thou/uL (1.4-8.2); ANISOCYTOSIS 1+; LARGE PLATELETS OCCASIONAL; NUCLEATED RBCS 2 /100WBC
--- NOTE | 2020-07-04 22:15 | NUR ---
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 ORIENTED X 3 O2 SAT 93 % ON 15 L HF AND NRB DENIES PAIN NOR DISCOMFORT. ENHANSED PRECAUTIONS FOR COVID 19 WILL CONT TO MONITOR.
[2020-07-05] VITALS (52 sets, daily range): BP systolic 92–165; BP diastolic 40–98
[2020-07-05 05:53] LABS: HEMOGLOBIN 11.1 gm/dL (12.0-15.0); MCH 30.1 pg (26.0-34.0); MCHC 32.6 g/dL (28.0-37.0); MCV 92.2 fL (80.0-100.0); RBC 3.69 mil/uL (4.20-5.00); RDW 15.9 % (10.5-14.5); WBC 3.8 thou/uL (4.0-11.0)
--- NOTE | 2020-07-05 06:00 | NUR ---
SLEPT AT INTERVALS TONIGHT. REMAINS ON HF 15 L NC AND NRB. ATIVAN GIVEN EARLIER FOR ANXIETY. VOIDING CLEAR DELANO URINE VIA BED DE ANDA. SINUS RHYTHM LUNGS ESS CLEAR AND DIMINISHED BILAT. A VERY SWEET LITTLE LADY. WILL CONT TO MONITOR
[2020-07-05 06:18] LABS: ALBUMIN 2.7 g/dL (3.4-5.0); CALCIUM 8.4 mg/dL (8.5-10.1); CREATININE 0.9 mg/dL (0.6-1.0); POTASSIUM 4.6 mmol/L (3.5-5.1); TOTAL BILIRUBIN 0.3 mg/dL (0.2-1.0); TOTAL PROTEIN 6.5 g/dL (6.4-8.2)
[2020-07-05 11:21] LABS: BE(vivo) -2.8 mmol/L (-2 to +3); HCO3 20.9 mmol/L (22.0-26.0); PCO2 32.7 mmHg (35.0-45.0); PO2 118.3 mmHg (80.0-100.0); pH 7.424 (7.360-7.450); sO2 98.4 % (92.0-98.0)
--- NOTE | 2020-07-05 11:35 | NUR ---
vitor completed the initial assessment to discuss home situation and social hx. neri is pt's dtr, and dpoa. neri stated she is covid positive, but at some point plans to go to pt's home to get dpoa paperwork and email it. pt lives home alone, has 2 steps to entryway, no steps to navigate as pt's bed/bathroom is on the main level. pt is usu dependent w/adls, employeed and drives. pt has walker,prn she has from a past sx. pt used hh "a very long time ago...about 15 yrs ago...cm provided neri w/icu number and rn name as she stated she has not received a callback. cm contacted the unit and lft message to have rn contact neri. cm to cont to follow.
--- NOTE | 2020-07-05 13:35 | NUR ---
0700-ASSUMED CARE OF PT.--VW 0915-PT INCREASINGLY SOB,RESTLESS.WHEN D/W PT ( & MYSELF), PT AGREED TO LINES & INTUBATION.TRYING BIPAP FIRST EVEN THOUGH PT STATES SHE IS SOMEWHAT CLAUSTRAPHOBIC.PIV FOUND OUT W TUBING LYING IN BED.IVT COMING OVER TO PLACE LINE.PT ON 100%,02/02, RR 10 W PIP'S 14-15.--VW
--- NOTE | 2020-07-05 14:04 | EKG ---
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1955 Requested By: Barry Huang Order Number: [id number] MD: Catracho Muller Measurements Intervals Clyde Rate: 102 P: 31 MS: 143 QRS: -4 QRSD: 95 T: 47 QT: 345 QTc: 450 Interpretive Statements Sinus tachycardia Left atrial enlargement Anterior infarct, old Compared to ECG 04/29/2020 13:53:42 Atrial abnormality now present Myocardial infarct finding now present Sinus rhythm no longer present Electronically Signed On 07-05-2020 14:04:31 [employer] by Catracho Muller [email or web address] <ELECTRONICALLY SIGNED> By: Catracho Muller MD, [facility] 07/05/20 1404 38 38 Catracho Muller MD, FAC /EPI
--- NOTE | 2020-07-05 14:05 | NUR ---
Nutrition: REC tube feeding initiation of Vital HP to reach 50 mL/hr with current propofol demands or bolus 5 cartons daily if no pump available.
--- NOTE | 2020-07-05 14:24 | NUR ---
CONSULTED TO PLACE A CENTRAL LINE FOR A PATIENT IN ICU. ORDER AND CONSENT NOTED. A 1ST ATTEMPT TO PLACE THE CENTRAL LINE WAS UNSUCCESSFUL THE PATIENT WAS IN RR DISTRESS AND UNABLE TO LAY BACK FOR PROCEDURE, SHE BECAME PANICKED AND SAT UP IN BED DURING PROCEDURE- PROCEDURE ABORTED. A 2ND ATTEMPT AFTER THE PATIENT WAS INTUBATED WAS SUCCESSFUL. THE 25CM LINE WAS PLACED PER HOSPITAL POLICY. A STAT CHEST XRAY - LINE AT [facility] AND RELEASED FOR USE
[2020-07-05 16:11] LABS: URINE BILIRUBIN NEGATIVE (Negative); URINE BLOOD TRACE (Negative); URINE CLARITY CLEAR; URINE COLOR YELLOW; URINE GLUCOSE-RANDOM* 1+ (Negative); URINE KETONES TRACE (Negative); URINE LEUKOCYTES-REFLEX NEGATIVE (Negative); URINE NITRITE-REFLEX NEGATIVE (Negative); URINE PROTEIN (DIPSTICK) TRACE (Negative); URINE SPECIFIC GRAVITY 1.015 (1.005-1.035); URINE UROBILINOGEN 0.2 E.U./dl (0.2-1.0)
[2020-07-06] VITALS (21 sets, daily range): BP systolic 99–139; BP diastolic 42–71
[2020-07-06 06:19] LABS: ALBUMIN 2.5 g/dL (3.4-5.0); ANION GAP 10 mmol/L (7-16); BUN 8 mg/dL (7-18); CALCIUM 8.1 mg/dL (8.5-10.1); CHLORIDE 108 mmol/L (98-107); CO2 23 mmol/L (21-32); CREATININE 0.7 mg/dL (0.6-1.0); DIRECT BILIRUBIN < 0.1 mg/dL (<0.1-0.2); GLUCOSE 126 mg/dL (74-106); PHOSPHORUS 2.3 mg/dL (2.5-4.9); POTASSIUM 3.3 mmol/L (3.5-5.1); SGOT 48 U/L (15-37); SGPT 24 U/L (30-65); SODIUM 141 mmol/L (136-145); TOTAL BILIRUBIN 0.3 mg/dL (0.2-1.0); TOTAL PROTEIN 5.8 g/dL (6.4-8.2)
[2020-07-06 06:26] LABS: FIBRINOGEN 423.8 mg/dL (210-360); PROTIME 9.6 Seconds (9.3-11.4)
--- NOTE | 2020-07-06 07:18 | NUR ---
PATIENT SEDATED/INTUBATED. VSS, TEMP WNL WITH ESTHER LETY.RECEIVED CONVALESCENT PLASMA LAST NIGHT AND TOLARATED TRANSFUSION WELL. BOLUS TUBE FEED STARTED AT MN, UOP 775ML. DAUGHTER DAWOOD PETERSEN CALLED LAST NIGHT, UPDATED ON PATIENT'S CONDITION, VENT SETTINGS AND MEDICATIONS, AND ALL QUESTIONS ANSWERED. NO CONCERNS VIOCED
--- NOTE | 2020-07-06 13:28 | NUR ---
ASSUMED CARE OF PT AT 0700 DR. MAYS AT BEDSIDE AT 1200, NO NEW ORDERS GIVEN RETURNED DAUGHTER CALL AT 1320 AND UPDATED HER PER POC. THE DAUGHTER UNDERSTANDS THAT THIS IS GOING TO BE A SLOW PROCESS AND I LET HER KNOW THAT HER MOTHER IS STILL VERY SICK. SHE SAID SHE UNDERSTOOD. HER DAUGHTER WOULD LIKE TO COME TRACK AND FIELD COACH HER MOM'S PURSE AND I TOLD HER I WOULD GET THAT COORDINATED WITH SECURITY AND LET HER KNOW WHEN IT'S READY TO BE PICKED UP. THE
[2020-07-07] VITALS (22 sets, daily range): BP systolic 104–138; BP diastolic 40–78
[2020-07-07 00:10] LABS: ABSOLUTE NEUTROPHILS 6.5 thou/uL (1.4-8.2); HEMATOCRIT 28.1 % (37.0-47.0); HEMOGLOBIN 9.2 gm/dL (12.0-15.0); LYMPHOCYTES 3.3 % (24.0-44.0); MCH 29.7 pg (26.0-34.0); MCHC 32.7 g/dL (28.0-37.0); MCV 90.9 fL (80.0-100.0); MONOCYTES 3.3 % (1.0-8.0); PLATELET COUNT 192 thou/uL (150-400); POLYS 93.4 % (36.0-66.0); RBC 3.09 mil/uL (4.20-5.00); RDW 16.2 % (10.5-14.5); WBC 6.9 thou/uL (4.0-11.0)
--- NOTE | 2020-07-07 01:51 | NUR ---
PATIENT SEDATED/INTUBATED, PERRL, L/S CLEAR/DIM, FIO2 60%, SATO2 94%. VSS, TEMP 97.2 WITH LOW SETTINGS ON ESTHER HUGGER TO KEEP PT WITHIN NORMOTHERMIA. B/S +VE, NO GASTRIC RESIDUAL NOTED, BOLUS TUBE FEEDING GIVEN PER ORDERS. DAWOOD AU CALLED AND WAS UPDATED ON PATIENTS CONDITION, POC, AND MEDICATION. ALL QUESTIONS ANSWERED. NO CONCERNS VOICED AT THIS TIME, WILL CONTINUE POC.
[2020-07-07 05:41] LABS: ALBUMIN 2.2 g/dL (3.4-5.0); ANION GAP 13 mmol/L (7-16); BUN 16 mg/dL (7-18); CHLORIDE 109 mmol/L (98-107); CO2 20 mmol/L (21-32); CREATININE 0.8 mg/dL (0.6-1.0); DIRECT BILIRUBIN < 0.1 mg/dL (<0.1-0.2); GLUCOSE 154 mg/dL (74-106); PHOSPHORUS 2.5 mg/dL (2.5-4.9); POTASSIUM 3.3 mmol/L (3.5-5.1); SGOT 39 U/L (15-37); SGPT 22 U/L (30-65); SODIUM 142 mmol/L (136-145); TOTAL BILIRUBIN 0.2 mg/dL (0.2-1.0); TOTAL PROTEIN 5.3 g/dL (6.4-8.2)
--- NOTE | 2020-07-07 19:30 | NUR ---
Antione updated on plan of care and patient condition twice today. They were also able to facetime for over an hour in patient room. Patient is not advancing toward ventilation liberation goals. Her peep went up from 5 to 7 today, and FIO2 went from 60 to 70 percent. She has intermittent moments of desaturation lasting ~5 mins with movement and suctioning.
--- NOTE | 2020-07-07 19:34 | NUR ---
Patient's posessions (purse) were taken by RN to security to be returned to eros Antione at 201407/07/20.
[2020-07-08] VITALS (19 sets, daily range): BP systolic 106–166; BP diastolic 49–94
[2020-07-08 07:38] LABS: HEMATOCRIT 27.8 % (37.0-47.0); HEMOGLOBIN 9.1 gm/dL (12.0-15.0); MCHC 32.8 g/dL (28.0-37.0); MCV 91.6 fL (80.0-100.0); PLATELET COUNT 165 thou/uL (150-400); RBC 3.04 mil/uL (4.20-5.00); RDW 15.9 % (10.5-14.5); WBC 8.6 thou/uL (4.0-11.0)
[2020-07-08 08:38] LABS: ALBUMIN 2.1 g/dL (3.4-5.0); ANION GAP 11 mmol/L (7-16); BUN 18 mg/dL (7-18); CALCIUM 8.4 mg/dL (8.5-10.1); CHLORIDE 108 mmol/L (98-107); CO2 23 mmol/L (21-32); CREATININE 0.7 mg/dL (0.6-1.0); DIRECT BILIRUBIN < 0.1 mg/dL (<0.1-0.2); GLUCOSE 230 mg/dL (74-106); MAGNESIUM 2.3 mg/dL (1.8-2.4); PHOSPHORUS 2.3 mg/dL (2.6-4.7); SGOT 37 U/L (15-37); SGPT 24 U/L (14-59); SODIUM 142 mmol/L (136-145); TOTAL BILIRUBIN 0.2 mg/dL (0.2-1.0); TOTAL PROTEIN 4.9 g/dL (6.4-8.2)
[2020-07-08 08:41] LABS: POTASSIUM 2.9 mmol/L (3.5-5.1)
[2020-07-08 10:17] LABS: ABSOLUTE NEUTROPHILS 7.9 thou/uL (1.4-8.2); ANISOCYTOSIS SLIGHT; METAMYELOCYTES 1 %; POIKILOCYTOSIS SLIGHT
--- NOTE | 2020-07-08 11:09 | NUR ---
CRITICAL POTASSIUM CALLED TO DR. EDDY. ORDERS PLACED TO REPLACE. K+ 2.9
--- NOTE | 2020-07-08 16:18 | NUR ---
SPOKE WITH PATIENTS DAUGHTER DAWOOD AND GAVE UPDATE. ALL QUESTIONS ANSWERED. REACHED OUT TO DR. MAYS AND INFORMED THAT DAUGHTER WOULD LIKE PHYSICIAN UPDATE.
--- NOTE | 2020-07-08 18:31 | NUR ---
PATIENT NOTED TO DESAT - SUCTIONED WITH NO IMPROVEMENT. NOTIFIED DR. MAYS. ORDERS TO TITRATE FIO2 UP TO MAINTAIN SATS GREATER THAN 92% AND TO OBTAIN STAT CHEST XRAY
[2020-07-09] VITALS (21 sets, daily range): BP systolic 107–152; BP diastolic 43–75
[2020-07-09 03:30] LABS: BE(vivo) -2.1 mmol/L (-2 to +3); HCO3 21.6 mmol/L (22.0-26.0); PCO2 33.6 mmHg (35.0-45.0); PO2 78.6 mmHg (80.0-100.0); pH 7.425 (7.360-7.450)
--- NOTE | 2020-07-09 06:00 | NUR ---
REMAINS INTUBATED AND SEDATED WITH PROPOFOL VERSED AND FENTANYL.O2 SAT 97% ON 50 % FIO2. 600 CC UO THIS SHIFT. PANCHO TUBE FDG AT 40 CC/HR. SINUS RHYTHM TO ST. PROGRESSING TOWARD GOALS.
[2020-07-09 06:25] LABS: HEMATOCRIT 27.5 % (37.0-47.0); HEMOGLOBIN 9.1 gm/dL (12.0-15.0); MCHC 33.2 g/dL (28.0-37.0); MCV 90.2 fL (80.0-100.0); PLATELET COUNT 147 thou/uL (150-400); RBC 3.05 mil/uL (4.20-5.00); RDW 16.5 % (10.5-14.5); WBC 9.8 thou/uL (4.0-11.0)
[2020-07-09 06:43] LABS: ANION GAP 11 mmol/L (7-16); BUN 22 mg/dL (7-18); CALCIUM 8.2 mg/dL (8.5-10.1); CHLORIDE 106 mmol/L (98-107); CO2 23 mmol/L (21-32); CREATININE 0.7 mg/dL (0.6-1.0); DIRECT BILIRUBIN < 0.1 mg/dL (<0.1-0.2); GLUCOSE 245 mg/dL (74-106); PHOSPHORUS 3.2 mg/dL (2.6-4.7); POTASSIUM 3.8 mmol/L (3.5-5.1); SGOT 30 U/L (15-37); SGPT 22 U/L (14-59); SODIUM 140 mmol/L (136-145); TOTAL BILIRUBIN 0.3 mg/dL (0.2-1.0); TOTAL PROTEIN 4.8 g/dL (6.4-8.2)
[2020-07-09 06:51] LABS: MAGNESIUM 2.3 mg/dL (1.8-2.4); PHOSPHORUS 3.4 mg/dL (2.6-4.7)
--- NOTE | 2020-07-09 10:45 | NUR ---
1045- Nurse updated patients daughter on orders, treatments, and current patient status update. Her questions were answered.
--- NOTE | 2020-07-09 12:00 | NUR ---
1200- Patient daughter was able to face time with patient for a bit of time.
[2020-07-09 12:03] LABS: ANISOCYTOSIS 1+; METAMYELOCYTES 2 %
--- NOTE | 2020-07-09 13:31 | HC ---
[facility] [place] [address] CONSULTATION Name: JOYA BOND Room #: 244-P [facility] IN M.R.#: [id number] Admission: 07/04/20 Attend Phys: Sina Garcia MD Discharge: Date of : 51 Report #: [id number] THIS REPORT FOR: cc: Giancarlo Medina MD, Mark S. MD Geha, Daniel J. MD ~ DATE OF SERVICE: 07/05/2020 INFECTIOUS DISEASE CONSULTATION REASON FOR CONSULTATION: Evaluate COVID-19 and respiratory failure. HISTORY OF PRESENT ILLNESS: A 65-year-old underlying history of rheumatoid arthritis, on immunosuppression, presents with respiratory failure. Her granddaughter was identified with COVID-19 one week ago. Several days ago, she noticed onset of fatigue, low-grade fever and shortness of breath. She noted that she did receive COVID vaccine on 07/02/2020. She subsequently developed increased myalgias, arthralgias, worsening cough and shortness of breath with O2 saturations dropped into the 70s. She was evaluated in the Emergency Room, found to be hypoxic. A CT scan of the chest was negative for PE, but showed extensive bilateral ground glass pulmonary infiltrates. She has been on treatment for her rheumatoid arthritis, which included Tofacitinib (Xeljanz), Celebrex and Bactrim. Subsequently, placed on Remdesivir, corticosteroids, ivermectin, and ceftriaxone. The patient required intubation and mechanical ventilation. She had a right IJ catheter placed, a Menjivar catheter placed. REVIEW OF SYSTEMS: A 14-point review of system was negative other than what has been described above after discussion with nursing staff at the bedside. The patient was sedated. PAST MEDICAL HISTORY: Hypertension, peripheral vascular disease, rheumatoid arthritis, chronic immunosuppression, low back surgery, bilateral total knee arthroplasties, diabetes, anxiety, and depression. FAMILY HISTORY: No report of tuberculosis. SOCIAL HISTORY: Nonsmoker, occasional alcohol use. No reported HIV risk factors. ALLERGIES: SULINDAC. MEDICATIONS: As noted on her MAR, which were reviewed. [facility] [address] [place] [address] CONSULTATION Name: RIKI BONDHA Room #: 244-P [facility] IN M.R.#: [id number] Admission: 07/04/20 Attend Phys: Sina Garcia MD Discharge: Date of : 51 Report #: [id number] PHYSICAL EXAMINATION: VITAL SIGNS: Afebrile and hemodynamically stable. GENERAL: She was sedated with oral intubation. ET tube in place. Small amount of sputum able to be suctioned. She is on 80% FiO2. SKIN: Without rash or decubitus. No palpable adenopathy. Right IJ catheter site without drainage or erythema. EYES: Without scleral icterus. MOUTH: Without mucositis. NECK: Supple. LUNGS: Coarse bilaterally. HEART: Regular, without murmur, gallop or rub. ABDOMEN: Soft with no hepatosplenomegaly or mass. GENITOURINARY: External genitalia without lesion. Indwelling Menjivar catheter. RECTAL: Not performed. EXTREMITIES: Without clubbing, cyanosis or edema. Able to move all extremities. LABORATORY STUDIES: Reviewed. MICROBIOLOGY: Reviewed. Chest x-ray and CT scan reviewed. IMPRESSION: 1. COVID-19 infection with __ and respiratory failure. 2. Immunosuppression for rheumatoid arthritis. 3. Acute kidney injury. 4. Hypertension. 5. Anxiety and depression history. RECOMMENDATIONS: 1. We will continue full ICU support with antiviral and antibiotic coverage in addition to corticosteroids. Her other immunosuppression will be left on hold. 2. We will await cultures and follow serial laboratory studies and chest x-ray. 3. I have discussed with ICU medical team. <ELECTRONICALLY SIGNED> By: Barrett Duncan MD 07/09/20 1331 1422 1828 Barrett Duncan MD /nt
--- NOTE | 2020-07-09 13:49 | NUR ---
ON-GOING ASSESSMENT: CM REVIEWED CHART AND SPOKE WITH PTS DAUGHTER DAWOOD. DAWOOD EMAILED A COPY OF DPOA PAPERWORK TO CM, CM FAXED COPY OF THIS TO ICU TO BE PUT ON THE CHART. BEDSIDE RN AWARE. PT REMANINS IN ISOLATION FOR COVID 19. PT IS STILL ON THE VENT. CM WILL CONTINUE TO FOLLOW TO ASSIST NEEDED.
--- NOTE | 2020-07-09 16:50 | NUR ---
Patient neither progressing or not progressing towards plan of care. Patient remains in critical condition and remaining on steady course. Nurse has increased sedation as to assist with patient comfort when she becomes tachypnic and tachycardic with positive coughing. She is more light sedation intermittently, however no eye opening, but she does grimace and cough. Plan is to continue to monitor patient vital signs and oxygenation.
--- NOTE | 2020-07-09 16:56 | NUR ---
7598- Nurse updated patient on patients status. Her questions were answered. She wishes to facetime tonight at 2100. This will be passed on to patients shift engineer RN.
--- NOTE | 2020-07-09 21:00 | NUR ---
FAMILY FACE TIMED WITH PT. WERE VERY APPRECIATIVE OF THIS SERVICE
[2020-07-10] VITALS (20 sets, daily range): BP systolic 98–141; BP diastolic 39–66
--- NOTE | 2020-07-10 06:00 | NUR ---
REMAINS INTUBATED AND SEDATED WITH PROPOFOL VERSED AND FENTANYL GTTS. SINUS RHYTHM. AFEBRILE. CLRT 1000 CC UO THIS SHIFT. PANCHO TUBE FEEDINGS NO STOOLS TONIGHT. FIO2 50 % ON PRESSURE CONTROL. PROGRESSING TOWARD GOALS
[2020-07-10 06:23] LABS: HEMATOCRIT 29.8 % (37.0-47.0); HEMOGLOBIN 9.7 gm/dL (12.0-15.0); MCH 29.8 pg (26.0-34.0); MCHC 32.7 g/dL (28.0-37.0); MCV 91.2 fL (80.0-100.0); RBC 3.26 mil/uL (4.20-5.00); RDW 16.3 % (10.5-14.5)
[2020-07-10 06:49] LABS: ALBUMIN 2.1 g/dL (3.4-5.0); CALCIUM 8.6 mg/dL (8.5-10.1); CREATININE 0.5 mg/dL (0.6-1.0); POTASSIUM 4.6 mmol/L (3.5-5.1); TOTAL BILIRUBIN 0.4 mg/dL (0.2-1.0)
--- NOTE | 2020-07-10 14:18 | NUR ---
on-going assessment: cm reviewed chart. pt remains on the vent, 50 percent FI02, IN ENHANCED ISOLATION DUE TO COVID 19. CM RECEIVED LETTER FROM ATTENDING TO PROVIDE TO DPOA TO HELP WITH FINANCIAL AFFAIRS TEMPORARILY DUE TO PT BEING ON THE VENT IN ICU. CM EMAILED COPY TO PATIENTS DAUGHTER DAWOOD PER HER REQUEST. CM WILL CONTINUE TO FOLLOW TO ASSIST NEEDED.
--- NOTE | 2020-07-10 14:34 | NUR ---
SPOKE WITH DAUGHTER DAWOOD AND UPDATED HER ON PATIENT CONDITION AND PLAN OF CARE. FACETIME WAS DONE FOR APPROXIMATELY 10 MINUTES. DAUGHTER EXPRESSED CONCERN THAT SHE WANTED PATIENT PRONED. SPOKE WITH KO AND ORDER OBTAINED. WILL PRONE 8 HOURS A DAY TOLERATED. DAUGHTER NOTIFIED. SHE IS CURRENTLY FACETIMEING AGAIN AND READING A BOOK TO HER MOTHER.
[2020-07-11] VITALS (12 sets, daily range): BP systolic 92–154; BP diastolic 42–77
--- NOTE | 2020-07-11 00:40 | NUR ---
PATIENT SUPINED AT 2345, TOLERATED TRANSITION WELL. BATH GIVEN, VITAL REMAINED STABLE, 02 SAT 99%. BG 69, GAVE 1/2 AMP D50 AND RESTARTED TUBE FEEDING AT HALF DOSE. RESIDUALS 30CC. SECOND BG 103.
[2020-07-11 05:18] LABS: HEMOGLOBIN 9.7 gm/dL (12.0-15.0); MCH 30.2 pg (26.0-34.0); MCHC 33.4 g/dL (28.0-37.0); MCV 90.4 fL (80.0-100.0); RBC 3.21 mil/uL (4.20-5.00); RDW 16.5 % (10.5-14.5); WBC 10.8 thou/uL (4.0-11.0)
[2020-07-11 05:20] LABS: CALCIUM 8.5 mg/dL (8.5-10.1); CREATININE 0.6 mg/dL (0.6-1.0); POTASSIUM 4.1 mmol/L (3.5-5.1)
--- NOTE | 2020-07-11 05:53 | NUR ---
PT CONTINUING TO TOLERATE TF AND VENT WELL, SATS MAINTAINED >95%. VSS. PROGRESSING TOWARD GOALS
[2020-07-11 15:20] LABS: BE(vivo) 5.3 mmol/L (-2 to +3); HCO3 30.4 mmol/L (22.0-26.0); PCO2 47.4 mmHg (35.0-45.0); PO2 76.3 mmHg (80.0-100.0); pH 7.425 (7.360-7.450); sO2 95.4 % (92.0-98.0)
[2020-07-11 18:05] LABS: HEMATOCRIT 30.4 % (37.0-47.0); MCH 30.1 pg (26.0-34.0); MCHC 32.9 g/dL (28.0-37.0); MCV 91.3 fL (80.0-100.0); RBC 3.33 mil/uL (4.20-5.00); RDW 16.3 % (10.5-14.5); WBC 12.4 thou/uL (4.0-11.0)
--- NOTE | 2020-07-11 23:18 | NUR ---
PATIENT INTUBATED/SEDATED. TURNED FROM PRONING TO SUPINE POSITION AT 1930. SKIN IS INTACK WITH NO FACIAL EDEMA, TRACH TUBE WITHOUT DISLODGEMENT OR AIRWAY OBSTRUCTION. VSS, HEARTBEAT IS REGULAR, AND AFEBRILE. TUBE FEEDING RESTARTED AT 50ML/HR, NO GASTRIC RESIDUAL NOTED. SPOKE WITH DAUGHTER, DAWOOD PETERSEN. UPDATED HER ON PATIENT'S CONDITION, MEDICATIONS, VENT SETTINGS AND CURRENT POC. ALL QUESTIONS ANSWERED. NO CONCERNS VOICED BY DTR.
[2020-07-12] VITALS (26 sets, daily range): BP systolic 87–151; BP diastolic 44–76
[2020-07-12 05:35] LABS: HEMATOCRIT 30.9 % (37.0-47.0); MCH 29.6 pg (26.0-34.0); MCHC 32.5 g/dL (28.0-37.0); MCV 91.4 fL (80.0-100.0); RBC 3.38 mil/uL (4.20-5.00); RDW 15.9 % (10.5-14.5); WBC 14.3 thou/uL (4.0-11.0)
[2020-07-12 05:50] LABS: CALCIUM 8.4 mg/dL (8.5-10.1); CREATININE 0.6 mg/dL (0.6-1.0); POTASSIUM 4.7 mmol/L (3.5-5.1)
--- NOTE | 2020-07-12 07:46 | NUR ---
Patient proned this am at 0705. Will remain proned for 8 hours. Proning technique was smooth, patient tolerated well.
[2020-07-12 09:10] LABS: ALBUMIN 2.1 g/dL (3.4-5.0); DIRECT BILIRUBIN 0.1 mg/dL (<0.1-0.2); TOTAL BILIRUBIN 0.5 mg/dL (0.2-1.0); TOTAL PROTEIN 5.3 g/dL (6.4-8.2)
--- NOTE | 2020-07-12 10:45 | NUR ---
1045- Nurse updated patients daughter, Antione, on patient status, plan of care, and progress. Her questions were answered. Plan is for Antione to facetime at 1600 today, after she is changed to semi-fowlers position at 1500.
--- NOTE | 2020-07-12 15:42 | NUR ---
1515- Patient position changed, back to semi-fowlers. This was done with three registered nurses and a respiratory therapist. Patient tolerated transition well. Nurse to continue to monitor patient status.
--- NOTE | 2020-07-12 16:44 | NUR ---
Patient progressing towards plan of care as evidenced by decreased level of requirement of ventilator support. Patient able to wean down on peep. Plan of care is to continue to monitor patient vital signs, need for ventilator, oxygenation, and urine output.
--- NOTE | 2020-07-12 16:46 | NUR ---
Kervin Talbot, patients daughter, is facetiming patient and reading her a store with her children.
--- NOTE | 2020-07-12 22:08 | NUR ---
5080 - SPOKE WITH DAWOOD (DAUGHTER) FOR ALMOST 20 MINS REGARDING PTS CONDITIONS. ALL QUESTIONS ANSWERED. OFFERED TO NATHANIEL WITH PT VIA TABLET. DAUGHTER WOULD LIKE TO NATHANIEL TOMORROW AROUND 1000 IF POSSIBLE. WILL PASS INFORMATION ON TO DAYSPAFT RN.
[2020-07-13] VITALS (25 sets, daily range): BP systolic 92–151; BP diastolic 44–78
[2020-07-13 06:00] LABS: HEMATOCRIT 30.1 % (37.0-47.0); HEMOGLOBIN 9.8 gm/dL (12.0-15.0); MCH 29.8 pg (26.0-34.0); MCHC 32.5 g/dL (28.0-37.0); MCV 91.7 fL (80.0-100.0); RBC 3.28 mil/uL (4.20-5.00); RDW 15.8 % (10.5-14.5); WBC 14.6 thou/uL (4.0-11.0)
[2020-07-13 06:10] LABS: CALCIUM 8.3 mg/dL (8.5-10.1); CREATININE 0.5 mg/dL (0.6-1.0); DIRECT BILIRUBIN 0.1 mg/dL (<0.1-0.2); POTASSIUM 4.4 mmol/L (3.5-5.1); TOTAL BILIRUBIN 0.4 mg/dL (0.2-1.0); TOTAL PROTEIN 5.5 g/dL (6.4-8.2)
--- NOTE | 2020-07-13 06:16 | NUR ---
PT NOT PROGRESSING TOWARDS GOAL DEMONSTRATED BY INCREASING HER FIO2 TO 60%. PT REMAINS INTUBATED AND SEDATED WITH PROPOFOL AND VERSED. DURING SEDATION VACATION PT BECAME TACHYCARDIC, AND DESATED INTO THE 80'S, PT TOOK APPROX AN HOUR TO RECOVER OXYGEN SATURATIONS. TUBE FEEDINGS RUNNING AT GOAL AND BEING WELL TOLERATED BY PT. PT HAS POSITIVE GAG/COUGH, PT DOES W/D TO PAIN STIMULI.
--- NOTE | 2020-07-13 14:31 | NUR ---
ON-GOING ASSESSMENT: CM REVIEWED CHART. PT REMAINS IN ENHANCED ISOLATION DUE TO COVID 19. PT IS SEDATED ON THE VENT. CONTINUING TREATMENT. CM WILL CONTINUE TO FOLLOW TO ASSIST NEEDED.
--- NOTE | 2020-07-13 16:15 | NUR ---
PT INTUBATED AND SEDATED. RT HAS ATTEMPTED TO TITRATE DOWN FIO2 BUT PT DOES NOT TOLERATE. PEEP UP TO 9. PT PRONED AT 1545, PER DR MAYS IT IS OK TO PRONE FOR UP TO 16 HOURS IF TOLERATED. PT TOLERATING PRONE POSITION NOW. FENTANLY/VERSED/PROPOFOL GTT'S FOR PAIN/SEDATION/VENT MANAGEMENT. TUBE FEEDING WAS AT GOAL AND TOLERATED WELL, TUBE FEED OFF 30 MINUTES BEFORE PRONING. PT HAS LOW GRADE FEVER, ADEQUATE UOP, NO BM. SEDATION VACATION THIS AM, PT DID NOT FSC, BECAME TACHYCARDIC/TACHYPNEIC. PT AND DPOA HAVE BEEN UPDATED AND EDUCATED ON PT CONDITION AND POC MULTIPLE TIMES TODAY. DPOA VERY HAPPY WITH CARE TODAY. PT SLOWLY PROGRESSING TOWARDS POC.
[2020-07-14] VITALS (38 sets, daily range): BP systolic 88–158; BP diastolic 44–89
[2020-07-14 05:56] LABS: CALCIUM 8.4 mg/dL (8.5-10.1); CREATININE 0.5 mg/dL (0.6-1.0); POTASSIUM 4.7 mmol/L (3.5-5.1)
[2020-07-14 05:59] LABS: HEMATOCRIT 29.2 % (37.0-47.0); HEMOGLOBIN 9.5 gm/dL (12.0-15.0); MCHC 32.6 g/dL (28.0-37.0); MCV 92.1 fL (80.0-100.0); RBC 3.17 mil/uL (4.20-5.00); RDW 15.5 % (10.5-14.5); WBC 13.5 thou/uL (4.0-11.0)
[2020-07-14 06:10] LABS: DIRECT BILIRUBIN 0.2 mg/dL (<0.1-0.2); TOTAL BILIRUBIN 0.5 mg/dL (0.2-1.0); TOTAL PROTEIN 5.5 g/dL (6.4-8.2)
[2020-07-15] VITALS (35 sets, daily range): BP systolic 86–154; BP diastolic 45–82
[2020-07-15 05:18] LABS: HEMATOCRIT 28.3 % (37.0-47.0); HEMOGLOBIN 9.3 gm/dL (12.0-15.0); MCH 30.5 pg (26.0-34.0); MCV 92.6 fL (80.0-100.0); RBC 3.06 mil/uL (4.20-5.00); RDW 15.8 % (10.5-14.5); WBC 14.1 thou/uL (4.0-11.0)
[2020-07-15 05:34] LABS: CALCIUM 8.3 mg/dL (8.5-10.1); CREATININE 0.4 mg/dL (0.6-1.0); POTASSIUM 4.3 mmol/L (3.5-5.1)
[2020-07-16] VITALS (48 sets, daily range): BP systolic 89–175; BP diastolic 44–96
[2020-07-16 05:44] LABS: HEMATOCRIT 27.1 % (37.0-47.0); HEMOGLOBIN 8.7 gm/dL (12.0-15.0); MCH 29.9 pg (26.0-34.0); MCHC 32.1 g/dL (28.0-37.0); MCV 93.4 fL (80.0-100.0); RBC 2.9 mil/uL (4.20-5.00); RDW 15.9 % (10.5-14.5)
[2020-07-16 05:55] LABS: ANION GAP < 0 mmol/L (7-16); BUN 35 mg/dL (7-18); CALCIUM 8.4 mg/dL (8.5-10.1); CHLORIDE 101 mmol/L (98-107); CO2 40 mmol/L (21-32); CREATININE 0.5 mg/dL (0.6-1.0); GLUCOSE 208 mg/dL (74-106); POTASSIUM 4.3 mmol/L (3.5-5.1); SODIUM 140 mmol/L (136-145)
--- NOTE | 2020-07-16 09:36 | NUR ---
0936 - RN SPOKE WITH DAWOOD AND PROVIDED CURRENT CLINICAL PICTURE OF THE PT, TALKED ABOUT THE GOALS FOR TREATMENT THIS MORNING WHICH IS TO LOWER THE VENTILATOR SETTING/KEEPING PT COMFORTABLE. DAWOOD ASKED ABOUT EDEMA/VS/WHETHER MORE LASIX WILL BE GIVEN. RN EXPLAINED, THAT PT HAS +2 ANSARCA, VS ARE CRITICALLY STABLE GIVEN THE CURRENT GTT, AND LASIX ADMIN WILL HAVE TO BE DETERMINED BY THE PROVIDER. DAWOOD WANTED TO FACETIME THIS MORNING, RN STATED THAT HE WILL ATTEMPT TO MAKE THAT HAPPEB. CONTINUING TO MONITOR. WILL UPDATE
--- NOTE | 2020-07-16 11:01 | NUR ---
POC UPDATE: PT CONT W/COVID TX AND ABX. TAPPERING STEROIDS. VENT WEANING TRIALS HAVE STARTED. PLAN IS TO CONT W/ICU SUPPORT.
--- NOTE | 2020-07-16 19:29 | NUR ---
PT IS NOT PROGRESSING TOWARDS DISCHARGE TODAY, GOAL THIS SHIFT WAS TO TITRATE THE VENTILATION/SEDATION DOWN. FIO2 WAS DECREASED FROM 55% TO 50% AND WHEN RN ATTEMPTED TO TITRATE THE SEDATION LEVEL DOWN, PT'S HR INCREASED AND BLOOD PRESSURE INCREASE WAS NOTED WELL. RN ADVISED NOC RN TO INCREASE PROPOFOL GTT TO ASSIST WITH BP/HR MANAGEMENT WELL SEDATION MANAGEMENT. PT'S LOPEZ LEAKED DURING THE SHIFT SO ACCURATE MEASURE OF I/O UNABLE TO COLLECT THOUGH THE PAD WAS SEVERELY SATURATED INDICATING HIGH URINE OUTPUT. Q2H TURNS WERE MAINTAINED, TUBE FEEDING SHOWED MINIMAL RESIDUALS THROUGH SHIFT. DAUGHTER WAS CONTACTED AND UPDATED BY THE RN
[2020-07-17] VITALS (55 sets, daily range): BP systolic 91–153; BP diastolic 43–80
[2020-07-17 05:41] LABS: HEMATOCRIT 27.3 % (37.0-47.0); MCH 30.7 pg (26.0-34.0); MCV 93.1 fL (80.0-100.0); RBC 2.93 mil/uL (4.20-5.00); RDW 16.1 % (10.5-14.5); WBC 13.7 thou/uL (4.0-11.0)
[2020-07-17 05:49] LABS: CALCIUM 8.6 mg/dL (8.5-10.1); CREATININE 1.1 mg/dL (0.6-1.0); POTASSIUM 4.5 mmol/L (3.5-5.1)
[2020-07-17 09:34] LABS: BE(vivo) 9.3 mmol/L (-2 to +3); HCO3 34.6 mmol/L (22.0-26.0); PCO2 51.1 mmHg (35.0-45.0); PO2 57.2 mmHg (80.0-100.0); pH 7.448 (7.360-7.450); sO2 90.5 % (92.0-98.0)
--- NOTE | 2020-07-17 16:07 | NUR ---
PT INTUBATED AND SEDATED, VENT SETTINGS HAVE BEEN TITRATED BY RT PER DR ROY. NO SEDATION VACATION TODAY DUE TO HIGH PEEP, BUT ALL SEDATION MEDICATIONS HAVE BEEN TITRATED DOWN PER [facility] PROTOCAL. PT HAS LOW GRADE FEVER (NON-PHARMACOLOGICAL INTERVENTIONS USED), POLYUREA, BM X1, TOLERATING TUBE FEED WITH RESIDUALS WNL. PT AND FAMILY HAVE BEEN UPDATED AND EDUCATED EXTENSIVELY TODAY ON PT CONDITION AND POC. PT IS SLOWLY PROGRESSING TOWARDS POC.
[2020-07-18] VITALS (35 sets, daily range): BP systolic 98–150; BP diastolic 47–80
--- NOTE | 2020-07-18 06:45 | NUR ---
SPOKE WITH DAUGHTER DAWOOD PETERSEN AND UPDATED HER ON CURRENT TREATMENTS, PATIENT'S CONDITION, CURRENT POC, AND ALL QUESTIONS ANSWERED. DAWOOD VOICED UNDERSTANDING. PATIENT SEDATED AND APPEARS COMFORTABLE. ASSESSMENTS UNCHANGED FROM PREVIOUS. UOP ADEQUATE, TOLARATING TF WELL, VSS, AFEBRILE.
[2020-07-18 09:53] LABS: HEMATOCRIT 26.3 % (37.0-47.0); HEMOGLOBIN 8.8 gm/dL (12.0-15.0); MCH 31.3 pg (26.0-34.0); MCHC 33.4 g/dL (28.0-37.0); MCV 93.6 fL (80.0-100.0); RBC 2.82 mil/uL (4.20-5.00); WBC 9.2 thou/uL (4.0-11.0)
[2020-07-18 10:04] LABS: CALCIUM 9.1 mg/dL (8.5-10.1); CREATININE 0.5 mg/dL (0.6-1.0); POTASSIUM 3.8 mmol/L (3.5-5.1)
--- NOTE | 2020-07-18 14:53 | NUR ---
PT INTUBATED AND SEDATED. VENT SETTINGS UNCHANGED. NO SEDATION VACATION DUE TO HIGH PEEP. SEDATION CONTINUES TO BE TITRATED DOWN THE PT TOLERATES. PT HAS LOW GRADE FEVER (100.1), ADEQUATE UOP, BM X2, TOLERATING TUBE FEED WITH RESIDUALS WNL, CENTRAL LINE IN PLACE AND FUNCTIONING WELL. PT AND FAMILY HAVE BEEN UPDATED AND EDUCATED ON PT CONDITION AND POC. DAUGHTER UPDATED OVER THE PHONE X2. PT SLOWLY PROGRESSING TOWARDS POC.
[2020-07-19] VITALS (51 sets, daily range): BP systolic 94–175; BP diastolic 43–94
--- NOTE | 2020-07-19 09:11 | NUR ---
Patient daughter called for an update. Nurse went to answer phone and said hello and phone call hung up. Nurse called back and left message to call back.
--- NOTE | 2020-07-19 11:10 | NUR ---
nurse updated patients daughter, Antione, on plan of care and patient status.
[2020-07-19 11:34] LABS: BE(vivo) 6.2 mmol/L (-2 to +3); HCO3 30.2 mmol/L (22.0-26.0); PCO2 41.2 mmHg (35.0-45.0); PO2 66.7 mmHg (80.0-100.0); pH 7.483 (7.360-7.450); sO2 94.5 % (92.0-98.0)
--- NOTE | 2020-07-19 12:25 | NUR ---
CPAP TRIAL FROM [id number]. PATIENT DROWSY AND NOT FOLLOWING COMMANDS. SHE DID OPEN HER EYES, HOWEVER, SHE IS WEAK. SEDATION TITRATING DOWN, HOWEVER WAS STILL ON SEDATION. TIDAL VOLUMES WERE ADEQUATE, RESPIRATORY RATE WAS 15-20. SHE IS TACHYCARDIC IN THE ONE-TEENS. NO APPARENT DISTRESS NOTED AT THIS TIME. PLAN IS TO CONTINUE TO WEAN DOWN TOLERATED OFF OF SEDATION. SHE HAS A POSITIVE GAG AND COUGH, NEEDS TO BE A LITTLE MORE AWAKE. THIS WAS INFORMED TO DR. ROY FROM RT, PER REPORT.
--- NOTE | 2020-07-19 16:01 | NUR ---
S/W DTR DAWOOD BY PHONE TO GIVE A CONDITION UPDATE & TO PROVIDE EMOTIONAL SUPPORT. PT HAD A C-PAP TRIAL THIS AM FOR 1 HR, PER NURSING WAS PRETTY DROWSY & NOT FOLLOWING COMMANDS WELL. FOLLOWING.
--- NOTE | 2020-07-19 17:00 | NUR ---
1700-FACETIME WITH FAMILY.
--- NOTE | 2020-07-19 19:15 | NUR ---
Patient progressing towards plan of care as evidenced by cpap trial today for an hour. Secondary to her blood gas, she was switched back to prior settings. She has been tachycardic today, she did desat during one turn today, no apparent reason, however, she had a quick recovery. Fecal management system placed secondary to frequent oozing of loose stool. Plan of care is to continue to monitor for need of restraints and sedation. Possible cpap trial again tomorrow.
[2020-07-20] VITALS (36 sets, daily range): BP systolic 94–171; BP diastolic 45–90
[2020-07-20 08:06] LABS: BE(vivo) 6.5 mmol/L (-2 to +3); HCO3 30.6 mmol/L (22.0-26.0); PCO2 42.1 mmHg (35.0-45.0); PO2 60.8 mmHg (80.0-100.0); pH 7.479 (7.360-7.450); sO2 92.8 % (92.0-98.0)
[2020-07-20 09:16] LABS: HEMOGLOBIN 9.9 gm/dL (12.0-15.0); MCH 30.4 pg (26.0-34.0); MCHC 32.8 g/dL (28.0-37.0); MCV 92.6 fL (80.0-100.0); RBC 3.24 mil/uL (4.20-5.00); WBC 11.1 thou/uL (4.0-11.0)
[2020-07-20 09:20] LABS: CALCIUM 9.7 mg/dL (8.5-10.1); CREATININE 0.6 mg/dL (0.6-1.0); POTASSIUM 3.9 mmol/L (3.5-5.1)
--- NOTE | 2020-07-20 16:26 | NUR ---
PT INTUBATED AND SEDATED. CPAP TRIAL THIS AM FROM [id number], PT TOLERATED WELL. VENT SETTINGS UNCHANGED. SEDATION VACATION DONE THIS AM, PT BECAME TACHYCARDIC/TACHYPNEIC. VENT DAY 15. PT AFEBRILE, ADEQUATE UOP, BM X1, TOLERATING TUBE FEED WITH RESIDUALS WNL. FECAL TUBE REMOVED THIS AM BECAUSE PTS ABDOMEN WAS FIRM (HAD BM IMMEDIATELY AFTER REMOVAL OF FECAL TUBE). PT AND FAMILY HAVE BEEN UPDATED AND EDUCATED ON PT CONDITION AND POC. PT SLOWLY PROGRESSING TOWARDS POC. PLAN IS TO FACETIME FAMILY THIS EVENING.
[2020-07-21] VITALS (42 sets, daily range): BP systolic 101–166; BP diastolic 50–95
--- NOTE | 2020-07-21 02:48 | NUR ---
PT ON ENHANCED PRECAUTIONS FOR COVID POSITIVE. REMAINS ON VENT. LUNGS ARE CLEAR TO DIMINISHED. TOLERATING TUBE FEEDINGS WELL. LOPEZ CATH PRESENT. UPDATED DAUGHTER IN REGARDS TO PT STATUS. ABDOMEN IS ROUND AND SOFT. BOWEL SOUNDS ACTIVE. GENERALIZED EDEMA NOTED ON PT STATUS. LOOSE BM THIS SHIFT CLEANED UP WITH NURSING CARE. REMAINS ON SEDATION WITH THE VENT. WILL CONTINUE TO ASSESS AND MONITOR AND ASSESS PER NURSING
[2020-07-21 05:10] LABS: BE(vivo) 7.6 mmol/L (-2 to +3); HCO3 31.7 mmol/L (22.0-26.0); PCO2 42.8 mmHg (35.0-45.0); PO2 59.3 mmHg (80.0-100.0); pH 7.488 (7.360-7.450); sO2 92.4 % (92.0-98.0)
[2020-07-21 05:38] LABS: HEMATOCRIT 29.8 % (37.0-47.0); HEMOGLOBIN 9.7 gm/dL (12.0-15.0); MCH 30.6 pg (26.0-34.0); MCHC 32.5 g/dL (28.0-37.0); MCV 94.2 fL (80.0-100.0); RBC 3.16 mil/uL (4.20-5.00); RDW 16.5 % (10.5-14.5); WBC 11.4 thou/uL (4.0-11.0)
[2020-07-21 05:48] LABS: CALCIUM 9.7 mg/dL (8.5-10.1); CREATININE 0.5 mg/dL (0.6-1.0); MAGNESIUM 2.1 mg/dL (1.8-2.4); POTASSIUM 3.3 mmol/L (3.5-5.1)
--- NOTE | 2020-07-21 13:05 | NUR ---
1304- Patient oxygen saturation trending downward into the mid 80%. Nurse performed 100% o2 with suction, small thick secretions noted with suction. Fio2 increased to 50% as patient was sustaining less than 92%.
--- NOTE | 2020-07-21 14:30 | NUR ---
Patient moved from 244 to 241, nurse updated and talked with patients spokes jennifer, Antione, and informed her of move.
--- NOTE | 2020-07-21 16:15 | NUR ---
1615- FAMILY FACE TIME WITH PATIENT.
--- NOTE | 2020-07-21 19:48 | NUR ---
Patient not progressing towards plan of care as evidenced by continued need for ventilator support. Patient oxygen requirements increased today to 50% from 40%. When she coughs or is slightly more awake, her oxygen levels are 88%-93%. Sedation as documented. This was updated to patients daughter. Plan of care is to continue to monitor need for ventilator support and sedation.
--- NOTE | 2020-07-21 22:21 | NUR ---
PATIENTS CARES WAS ASSUMED AT SHIFT CHANGE. PATIENT WAS ASSESSED, ORAL CARE WAS DONE FIRST WITH A WASH CLOTH AND WATER. PATIENT HAS A SCAB ON THE LEFT CORNER OF HER MOUTH AND THE LEFT SIDE OF HER TOUNG. PATIENT IS TURNED AND ROTATED BY THE BED AUTOMATICLY. PATIENT HAS JUST BEEN SHIFTED TO HER RIGHT SIDE. PATIENT IS SEDATED AND INTABATED. PATIENT WAS MADE COMFORTABLE BEFORE EXITING HER ROOM
[2020-07-21 23:30] LABS: URINE BILIRUBIN NEGATIVE (Negative); URINE BLOOD NEGATIVE (Negative); URINE CLARITY CLEAR; URINE COLOR YELLOW; URINE GLUCOSE-RANDOM* NEGATIVE (Negative); URINE KETONES NEGATIVE (Negative); URINE NITRITE-REFLEX NEGATIVE (Negative); URINE PROTEIN (DIPSTICK) NEGATIVE (Negative); URINE UROBILINOGEN 0.2 E.U./dl (0.2-1.0)
[2020-07-21 23:57] LABS: URINE LEUKOCYTES-REFLEX 1+ (Negative)
[2020-07-22] VITALS (76 sets, daily range): BP systolic 76–189; BP diastolic 37–101
[2020-07-22] LABS: CASTS None Seen /LPF (None Seen); MUCUS None Seen strn/LPF (None Seen); SQUAMOUS None Seen /LPF (0-3); URINE RBC 0-2 Rare /HPF (0-2); URINE WBC-REFLEX 6-15 Few /HPF (0-5); YEAST-REFLEX Present (None Seen)
[2020-07-22 00:01] LABS: BACTERIA-REFLEX None Seen /HPF (None Seen); CRYSTALS None Seen /LPF (None Seen)
[2020-07-22 04:35] LABS: HEMATOCRIT 27.9 % (37.0-47.0); HEMOGLOBIN 9.2 gm/dL (12.0-15.0); MCH 31.2 pg (26.0-34.0); MCHC 32.9 g/dL (28.0-37.0); MCV 94.9 fL (80.0-100.0); RBC 2.94 mil/uL (4.20-5.00); RDW 16.5 % (10.5-14.5); WBC 7.7 thou/uL (4.0-11.0)
[2020-07-22 04:50] LABS: CREATININE 0.5 mg/dL (0.6-1.0); MAGNESIUM 1.7 mg/dL (1.8-2.4); POTASSIUM 3.7 mmol/L (3.5-5.1)
[2020-07-22 07:28] LABS: ALBUMIN 2.2 g/dL (3.4-5.0); DIRECT BILIRUBIN 0.2 mg/dL (<0.1-0.2); TOTAL BILIRUBIN 0.8 mg/dL (0.2-1.0); TOTAL PROTEIN 6.4 g/dL (6.4-8.2)
[2020-07-22 13:49] LABS: APTT 24.6 Seconds (24.5-32.8); PROTIME 10.6 Seconds (9.3-11.4)
--- NOTE | 2020-07-22 18:15 | NUR ---
PRONED AT 1500, FIO2 DECREASED TO .40% TOLERATING WELL. SPOKE WITH DAUGHTER AND UPDATED HER ON PLAN OF CARE AND PROGRESS. SPOKE ABOUT POSSIBLE TRACH AND PEG TOMORROW. FREQUENT LIQUID STOOLS TODAY, FECAL MANAGEMENT SYSTEM PLACED. AFEBRILE THIS SHIFT.
[2020-07-23] VITALS (33 sets, daily range): BP systolic 89–161; BP diastolic 43–90
[2020-07-23 04:17] LABS: HCO3 33.1 mmol/L (22.0-26.0); PCO2 48.6 mmHg (35.0-45.0); PO2 81.5 mmHg (80.0-100.0); pH 7.451 (7.360-7.450); sO2 96.3 % (92.0-98.0)
[2020-07-23 06:04] LABS: ABSOLUTE NEUTROPHILS 6.4 thou/uL (1.4-8.2); BASOPHILS 0.2 % (0.0-2.0); EOSINOPHILS 0.2 % (0.0-3.0); HEMATOCRIT 24.3 % (37.0-47.0); HEMOGLOBIN 8.3 gm/dL (12.0-15.0); LYMPHOCYTES 2.8 % (24.0-44.0); MCH 31.7 pg (26.0-34.0); MCHC 33.9 g/dL (28.0-37.0); MCV 93.6 fL (80.0-100.0); MONOCYTES 0.9 % (1.0-8.0); PLATELET COUNT 213 thou/uL (150-400); POLYS 95.9 % (36.0-66.0); WBC 6.7 thou/uL (4.0-11.0)
--- NOTE | 2020-07-23 06:21 | NUR ---
Patient proned until 0030. Turned to her back without difficulty. Patient remains on 40% FIO2. Minimal ETT secretions. Heart rate and rhythm stable. Blood pressure labile at times. Continues on sedation versed at 3 mg/hr, Fantanyl 50 mcg/hr, and Propofol 40 mcgs/kg/min. Tube feeds resumed once patient was on her back. Minimal residual this am. Colace held due to diarrhea. Spoke with patient's daughter, Antione. Gave her an update on patient condition and answered several questions. See documentation on interventions for assessment details.
[2020-07-23 06:34] LABS: ALBUMIN 2.4 g/dL (3.4-5.0); CALCIUM 8.8 mg/dL (8.5-10.1); CREATININE 0.5 mg/dL (0.6-1.0); POTASSIUM 3.6 mmol/L (3.5-5.1); TOTAL BILIRUBIN 0.5 mg/dL (0.2-1.0); TOTAL PROTEIN 5.9 g/dL (6.4-8.2)
--- NOTE | 2020-07-23 07:14 | NUR ---
RECEIVED OT EVAL AND TREAT ORDERS ON 07/22/20. PER CHART REVIEW, DR. MARCELO WRITES PT. PLAN IS TO NEED LTAC AND CUSTODIAL VENTILATOR SUPPORT. NURSING NOTES DISCUSS PRONING PT. AND PT. CONTINUING TO BE SEDATED. WILL PLACE PT. ON HOLD AND CHECK TOMORROW.
--- NOTE | 2020-07-23 16:16 | NUR ---
Spoke with daughter Antione at [phone] and discussed LTAC level of care if so deemed in need. At current Surgery has been consulted for possible trach/peg. CM will continue to follow for discharge disposition.
[2020-07-24] VITALS (35 sets, daily range): BP systolic 86–164; BP diastolic 42–86
--- NOTE | 2020-07-24 05:53 | NUR ---
PT HAS BEEN PRONED SINCE MIDNIGHT AND TOLERATING IT WELL.REMAINS ON PC 16,PEEP 6 AND 40% FIO2.SEDATED WITH VERSED,PROPOFOL AND FENTANYL.VITALS SIGNS BEEN STABLE INCLUDING O2 SAT.JOHN VELASQUEZ ADEQAUTE U/O.FMS IN PLACE WITH MINIMAL LOOSE STOOL.PATIENT'S DAUGHTER DAWOOD CALLED,UPDATED ON PT'S PROGRESS AND POC.REQUESTED TO BE GIVEN A CALL BY THE PHYSICIAN TODAY BETWEEN 7AM-8AM,WILL REPORT TO DAY RN TO NOTIFY THE PHYSCIAN.ASSESSMENT COMPLETED DOCUMENTED.PLAN TO HAVE PEG AND TRACH PLACED ON THURSDAY.
--- NOTE | 2020-07-24 14:53 | NUR ---
SW reviewed chart and spoke with nursing. Pt remains in Enhanced Isolation due to COVID. Trach/peg tube placement is anticipated for tomorrow. Referrals to LTAC to be initiated following surgery. SW is following to assist as needed with discharge planning.
--- NOTE | 2020-07-24 20:33 | NUR ---
This RN spoke Dr. Gutiérrez regarding neccesity of proning patient tonight. Dr Gutiérrez gave orders its okay to not prone tonight since patient is getting trached in the morning.
[2020-07-25] VITALS (52 sets, daily range): BP systolic 97–164; BP diastolic 46–82
[2020-07-25 05:09] LABS: HEMATOCRIT 25.3 % (37.0-47.0); HEMOGLOBIN 8.4 gm/dL (12.0-15.0); MCHC 33.2 g/dL (28.0-37.0); MCV 93.5 fL (80.0-100.0); RBC 2.7 mil/uL (4.20-5.00); RDW 16.8 % (10.5-14.5); WBC 5.4 thou/uL (4.0-11.0)
--- NOTE | 2020-07-25 07:15 | NUR ---
PT POC TO HAVE PEG TUBE AND TRACH PLACED TODAY.REMAINS ON VENT.SEDATED WITH PROPOFOL,VERSED AND FENTANYL.PT NOT TOLERATING SEDATION TITRATION.PT BECOMES TACHYCARDIAC ADN HYPETENSIVE WITH TITRATION.HAD LOW GRADE FEVER MOST OF THE NOC.MINIMAL ORAL SECRETIONS ON SUCTIONING.ENTERAL FEEDINGS HELD AT MIDNOC IN PREPARATION OF HER PROCEDURES TODAY.LOPEZ DD.FMS IN PLACE WITH LITTLE STOOL.ASSESSMENT COMPLETED DOCUMENTED.DAUGHTER TEDDY CALLED ADN UPDATED ON PT'S STATUS AND POC.REQUESTED CALL FROM DR ROY AND .SWETA RN NOTIFIED TO F/U.
--- NOTE | 2020-07-25 07:38 | NUR ---
ORDERS RECEIVED FOR EVAL AND TREAT HOWEVER Pt CONTINUES TO BE INTUBATED AND SEDATED. WILL PLACE Pt ON HOLD SINCE THIS IS 3RD CONSECUTIVE DAY Pt HAS NOT BEEN APPROPRIATE FOR THERAPY. WILL AWAIT NEW ORDERS WHEN Pt IS APPROPRIATE FOR THERAPY
[2020-07-25 11:42] LABS: CALCIUM 8.5 mg/dL (8.5-10.1); CREATININE 0.4 mg/dL (0.6-1.0); POTASSIUM 3.6 mmol/L (3.5-5.1)
--- NOTE | 2020-07-25 16:19 | NUR ---
PT HAD TRACH AND PEG PLACED THIS DAY. LTAC HAD BEEN DISCUSSED WITH PT'S DTR. CM TO FOLLOW UP WITH DTR REGARDING PREFERENCE FOR LTAC FACILITIES. CM TO FOLLOW INDICATED WITH DC PLANNING.
--- NOTE | 2020-07-25 19:11 | NUR ---
PT PROGRESSING TOWARDS GOALS. TRACH AND PEG PLACED SUCCESSFULLY TODAY.
[2020-07-26] VITALS (130 sets, daily range): BP systolic 72–155; BP diastolic 31–114
[2020-07-26 05:37] LABS: HEMOGLOBIN 9.6 gm/dL (12.0-15.0); MCHC 32.9 g/dL (28.0-37.0); RBC 3.09 mil/uL (4.20-5.00); RDW 16.2 % (10.5-14.5); WBC 7.1 thou/uL (4.0-11.0)
[2020-07-26 06:19] LABS: CREATININE 0.5 mg/dL (0.6-1.0); POTASSIUM 3.5 mmol/L (3.5-5.1)
--- NOTE | 2020-07-26 15:10 | NUR ---
cm called daughter valentin, daughter unable to talk rt at work and requested cm call her back tomorrow 07/27/20, will cont following as needed for dc needs.
--- NOTE | 2020-07-26 19:13 | NUR ---
PATIENT TOLERATING GOAL TUBE FEEDS AT 60ML/HR. VERSED, PROPOFOL AND FENTANYL FOR VENTILATOR MANAGEMENT.
[2020-07-27] VITALS (105 sets, daily range): BP systolic 99–167; BP diastolic 43–84
--- NOTE | 2020-07-27 03:31 | NUR ---
PATIENT'S CORE TEMP @1999 104, HR 110s-130s, PATIENT'S FACE APPEARS FLUSHED, ALL EXTREMETIES ARE COOL TOUCH, ROOM TEMP LOW AT 65, TYLENOL GIVEN AND DR. CRAFT NOTIFIED. NEW ORDERS GIVEN, PIVs X2 PLACED, RIGHT IJ PULLED, BLOOD CULTURES, SPUTUM AND URINE SAMPLES COLLECTED, AND ABX GIVEN. FAMILY CALLED AND CONNECTED TO [facility], UPDATED TO PATIENT'S CONDITION, SITUATION, NEW MEDICATIONS, AND VENT SETTINGS. QUESTIONS ANSWERED AND FAMILY VOICES UNDERSTANDING.
[2020-07-27 05:31] LABS: ABSOLUTE NEUTROPHILS 7.5 thou/uL (1.4-8.2); BASOPHILS 0.3 % (0.0-2.0); HEMATOCRIT 24.2 % (37.0-47.0); HEMOGLOBIN 8.1 gm/dL (12.0-15.0); LYMPHOCYTES 2.8 % (24.0-44.0); MCH 31.5 pg (26.0-34.0); MCHC 33.4 g/dL (28.0-37.0); MCV 94.3 fL (80.0-100.0); MONOCYTES 2.6 % (1.0-8.0); PLATELET COUNT 244 thou/uL (150-400); POLYS 90.3 % (36.0-66.0); RBC 2.57 mil/uL (4.20-5.00); RDW 16.6 % (10.5-14.5); WBC 8.3 thou/uL (4.0-11.0)
[2020-07-27 05:45] LABS: CALCIUM 8.1 mg/dL (8.5-10.1); CREATININE 0.5 mg/dL (0.6-1.0); POTASSIUM 3.8 mmol/L (3.5-5.1); TOTAL BILIRUBIN 0.6 mg/dL (0.2-1.0); TOTAL PROTEIN 5.6 g/dL (6.4-8.2)
[2020-07-27 06:59] LABS: URINE BILIRUBIN NEGATIVE (Negative); URINE BLOOD NEGATIVE (Negative); URINE CLARITY CLEAR; URINE COLOR YELLOW; URINE GLUCOSE-RANDOM* 2+ (Negative); URINE KETONES NEGATIVE (Negative); URINE LEUKOCYTES-REFLEX NEGATIVE (Negative); URINE NITRITE-REFLEX NEGATIVE (Negative); URINE PROTEIN (DIPSTICK) NEGATIVE (Negative); URINE SPECIFIC GRAVITY 1.025 (1.005-1.035)
--- NOTE | 2020-07-27 10:13 | NUR ---
cm called daughter valentin, spoke with her via phone call. education on transition of care ie ltac. she stated " i would like [facility] and now mom on iv abx and not dc today"/valentin. [facility]. new order for blood c & S, pt did have inc temp. no anticpated dc through the weekend. will cont following as needed for dc needs.
--- NOTE | 2020-07-27 13:59 | NUR ---
valentin dupree- daughter called stating her preference for placement post discharge at [facility]pc rehab with [facility].
--- NOTE | 2020-07-27 18:32 | NUR ---
PRECEDEX GTT INITIATED TODAY. VERSED AND FENTANYL CONTINUED. FAMILY FACETIME WITH PATIENT AT 1600. TOLERATING TUBE FEEDS. UPDATED DPOA DAUGHTER DAWOOD.
[2020-07-28] VITALS (33 sets, daily range): BP systolic 89–166; BP diastolic 43–88
[2020-07-28 07:26] LABS: CALCIUM 8.3 mg/dL (8.5-10.1); CREATININE 0.5 mg/dL (0.6-1.0); POTASSIUM 3.3 mmol/L (3.5-5.1)
[2020-07-28 08:14] LABS: HEMOGLOBIN 8.2 gm/dL (12.0-15.0); MCHC 32.8 g/dL (28.0-37.0); MCV 94.2 fL (80.0-100.0); RBC 2.65 mil/uL (4.20-5.00); RDW 16.5 % (10.5-14.5); WBC 5.7 thou/uL (4.0-11.0)
[2020-07-28 11:25] LABS: CALCIUM 7.9 mg/dL (8.5-10.1); CREATININE 0.4 mg/dL (0.6-1.0); MAGNESIUM 1.7 mg/dL (1.8-2.4); POTASSIUM 3.3 mmol/L (3.5-5.1)
--- NOTE | 2020-07-28 15:13 | NUR ---
PT TRACHED AND SEDATED WITH PRECEDEX AND FENTYNAL GTT. PT DOES NOT FSC. VENT SETTINGS TITRATED BY RT. PT FEBRILE TODAY T-MAX 38.4, TYLENOL GIVEN AND WAS SUCCESSFUL IN BREAKING FEVER. PT HAS ADEQUATE UOP, FMS IN PLACE WITH MINIMAL DRAINAGE, TOLERATING TUBE FEED THROUGH PEG TUBE WITH RESIDUALS WNL. POTASSIUM REPLACED PER [facility] PROTOCAL. PT AND DAUGHTER HAVE BEEN UPDATED AND EDUCATED ON PT CONDITION AND POC. PT NOT PROGRESSING TOWARDS POC.
--- NOTE | 2020-07-28 22:47 | NUR ---
DAUGHTER CALLED AT APPROX 1999. GIVEN UPDATED POC. EDUCATED DAUGHTER ON FENTANYL AND PRECEDEX GTTS, AND PULNabila BASS.
--- NOTE | 2020-07-28 22:48 | NUR ---
[facility] SET UP FOR SON 2100
[2020-07-29] VITALS (23 sets, daily range): BP systolic 88–157; BP diastolic 50–82
[2020-07-29 08:27] LABS: D-DIMER 4.03 ug/mLFEU (0.19-0.50); FIBRINOGEN 381.4 mg/dL (210-360); INR 1.1; PROTIME 11.1 Seconds (9.3-11.4)
[2020-07-29 11:05] LABS: HEMOGLOBIN 9.1 gm/dL (12.0-15.0)
[2020-07-29 11:09] LABS: CALCIUM 8.7 mg/dL (8.5-10.1); CREATININE 0.4 mg/dL (0.6-1.0); POTASSIUM 4.4 mmol/L (3.5-5.1); TOTAL BILIRUBIN 0.6 mg/dL (0.2-1.0); TOTAL PROTEIN 6.2 g/dL (6.4-8.2)
[2020-07-29 11:14] LABS: HEMATOCRIT 27.1 % (37.0-47.0); MCH 32.1 pg (26.0-34.0); MCHC 33.6 g/dL (28.0-37.0); MCV 95.6 fL (80.0-100.0); PLATELET COUNT 357 thou/uL (150-400); RBC 2.84 mil/uL (4.20-5.00); WBC 9.3 thou/uL (4.0-11.0)
[2020-07-29 11:36] LABS: ABSOLUTE NEUTROPHILS 8.4 thou/uL (1.4-8.2); NUCLEATED RBCS 1 /100WBC; PLATELET ESTIMATE NORMAL
--- NOTE | 2020-07-29 15:19 | NUR ---
PT SEDATED WITH TRACH/VENT, UNABLE TO TITRATE VENT SETTINGS. PT BECOMES TACHYCARDIC/TACHYPNEIC OFF OF SEDATION. RIGHT LEG COLD COMPARED TO LEFT, PROVIDER AWARE. PT FEBRILE, ADEQUATE UOP, FMS IN PLACE WITH MODERATE DRAINAGE, TOLERATING TUBE FEED WITH RESIDUALS WNL. PT AND FAMILY HAVE BEEN UPDATED AND EDUCATED ON PT CONDITION AND POC. PT SLOWLY PROGRESSING TOWARDS POC.
[2020-07-30] VITALS (36 sets, daily range): BP systolic 79–175; BP diastolic 29–99
[2020-07-30 04:42] LABS: HEMATOCRIT 27.1 % (37.0-47.0); MCH 30.8 pg (26.0-34.0); MCHC 33.1 g/dL (28.0-37.0); MCV 93.1 fL (80.0-100.0); RBC 2.92 mil/uL (4.20-5.00); RDW 16.3 % (10.5-14.5); WBC 11.3 thou/uL (4.0-11.0)
[2020-07-30 05:02] LABS: CALCIUM 8.8 mg/dL (8.5-10.1); CREATININE 0.4 mg/dL (0.6-1.0); POTASSIUM 4.2 mmol/L (3.5-5.1)
--- NOTE | 2020-07-30 06:35 | NUR ---
DAUGHTER, DAWOOD, CALLED. THIS RN UPDATED REGARDING PATIENTS PLAN OF CARE. DAUGHTER DISRESSED BY PATIENTS WORSENING CONDITION. BINHTHER ASK SPECIFIC QUESTIONS TO WHEN PATIENT WILL "SQUEEZE HAND" OR BEMORE MORE INTERACTIVE. RN EXPLAINED THAT PATIENT IS STILL VERY SICK AND IMPROVED WILL HAPPEN DAY BY DAY. JC WAS AGREEABLE TO THIS. BINHTHER TO SPEAK WITH DR MAYS LATER TODAY.
--- NOTE | 2020-07-30 06:37 | NUR ---
PATIENT IS REQUIRING INCREASED VENTILATOR SETTINGS. PATIENT HAS INCREASED SECREATIONS. PATIENT ON FENTALY AND PRECEDEX GTT. PATIENT MOVES EYES AND HEAD. CONTINUE WITH CURRENT PLAN OF CARE
--- NOTE | 2020-07-30 16:03 | NUR ---
FAXED REFERRAL TO [facility] SPOKE WITH HEIDI IN ADM SHE RECEIVED REFERRAL AND WILL REVIEW.
--- NOTE | 2020-07-30 17:09 | NUR ---
PT MINIMALLY SEDATED AND TRACHED WITH VENT. VENT SETTINGS TITRATED UP BY RT. PT STILL DOES NOT FSC. PT FEBRILE (TYLENOL AND NON-PHARMACOLAGICAL INTERVENTIONS GIVIN), ADEQUATE UOP, FMS IN PLACE WITH MINIMAL OUTPUT, TOLERATING TUBE FEED WITH RESIDUALS WNL. PT AND DAUGHTER HAVE BEEN UPDATED AND EDUCATED ON PT CONDTION AND POC. PT SLOWLY PROGRESSING TOWARDS POC. FACETIME CALL WITH FAMILY TODAY.
--- NOTE | 2020-07-30 22:37 | NUR ---
PT VERY AGITATED AND RESTLESS. OXYGEN NEEDS INCREASING. SAT 92 ON 100% FI02, HR 137. RT AT BEDSIDE FOR ABG. DEYSI GORDON NOTIFIED. LORAZEPAM PUSHES ORDERED PRN. WILL CONTACT PULM PHYSICIAN IF PATIENT REQUIRES FURTHER SEDATION.
[2020-07-31] VITALS (32 sets, daily range): BP systolic 78–177; BP diastolic 34–99
--- NOTE | 2020-07-31 06:49 | NUR ---
PATIENT HAD EPISODES OF RESTLESSNESS AND AGITATION THAT WERE RESOLVED WITH ATIVAN. WHEN PATIENT HAS THESE EPISODES, PATIENT DESATS. PATIENTS O2 NEED CONTINUE TO INCREASE. FEBRILE THRU THE NIGHT. CONTINUE PLAN OF CARE.
[2020-07-31 10:23] LABS: ABSOLUTE NEUTROPHILS 12.3 thou/uL (1.4-8.2); BASOPHILS 0.9 % (0.0-2.0); EOSINOPHILS 1.6 % (0.0-3.0); HEMATOCRIT 28.1 % (37.0-47.0); HEMOGLOBIN 8.9 gm/dL (12.0-15.0); LYMPHOCYTES 3.2 % (24.0-44.0); MCH 30.4 pg (26.0-34.0); MCHC 31.8 g/dL (28.0-37.0); MCV 95.6 fL (80.0-100.0); MONOCYTES 1.4 % (1.0-8.0); PLATELET COUNT 312 thou/uL (150-400); POLYS 92.9 % (36.0-66.0); RBC 2.94 mil/uL (4.20-5.00); RDW 16.9 % (10.5-14.5); WBC 13.3 thou/uL (4.0-11.0)
[2020-07-31 10:34] LABS: CALCIUM 8.6 mg/dL (8.5-10.1); CREATININE 0.6 mg/dL (0.6-1.0); MAGNESIUM 2.1 mg/dL (1.8-2.4); POTASSIUM 4.3 mmol/L (3.5-5.1)
--- NOTE | 2020-07-31 14:47 | NUR ---
[id number] for pe protocol. Patient tolerated transport well. She arrived back at room at 1445.
--- NOTE | 2020-07-31 15:11 | NUR ---
1500- Nurse talked with patients daughter, Antione, and updated her on patient status, ct being performed, and oxygenation levels/requirements. Her questions were answered. She is waiting for critical care physician to call her. This was relayed to
--- NOTE | 2020-07-31 19:35 | NUR ---
Patient not progressing towards plan of care as evidenced by continued need for sedation as when patient is awake, her oxygenation decreases into the 80% range. Fio2 is increasing and is at 100% at this time. Physician informed of this. CatScan performed per MD request, results noted. Plan of care is to continue to monitor patient for requirements of higher FIO2 and wean as able and also wean off sedation as able.
[2020-07-31 21:50] LABS: BE(vivo) 5.9 mmol/L (-2 to +3); HCO3 28.5 mmol/L (22.0-26.0); PCO2 33.2 mmHg (35.0-45.0); PO2 177.7 mmHg (80.0-100.0); pH 7.551 (7.360-7.450); sO2 99.4 % (92.0-98.0)
[2020-08-01] VITALS (124 sets, daily range): BP systolic 73–193; BP diastolic 31–96
[2020-08-01 05:09] LABS: HEMATOCRIT 24.7 % (37.0-47.0); HEMOGLOBIN 8.2 gm/dL (12.0-15.0); MCH 31.2 pg (26.0-34.0); MCHC 33.1 g/dL (28.0-37.0); MCV 94.3 fL (80.0-100.0); RBC 2.62 mil/uL (4.20-5.00); RDW 16.2 % (10.5-14.5); WBC 9.9 thou/uL (4.0-11.0)
[2020-08-01 05:31] LABS: ALBUMIN 2.3 g/dL (3.4-5.0); CALCIUM 8.3 mg/dL (8.5-10.1); CREATININE 0.4 mg/dL (0.6-1.0); POTASSIUM 3.5 mmol/L (3.5-5.1); TOTAL BILIRUBIN 0.4 mg/dL (0.2-1.0)
[2020-08-01 05:39] LABS: BE(vivo) 8.6 mmol/L (-2 to +3); HCO3 34.9 mmol/L (22.0-26.0); PCO2 59.7 mmHg (35.0-45.0); PO2 71.6 mmHg (80.0-100.0); pH 7.385 (7.360-7.450); sO2 93.8 % (92.0-98.0)
--- NOTE | 2020-08-01 08:30 | NUR ---
consent obtained for a Bronchoscopy per Dr. Harden request. Risks and benefits were explained to Antione, patients daughter and DPOA. She gave consent. Bronchoscopy performed at bedside with the sedation patient was already on. She tolerated proceedure well.
--- NOTE | 2020-08-01 16:12 | NUR ---
patient proned at 1600. Blood pressure in the sbp 70's, fluid bolus was given per MD order. This improved with bolus, however is low again. Nurse to inform Dr. Harden.
--- NOTE | 2020-08-01 16:27 | NUR ---
Nurse talked with Dr. Harden, per his orders, place a picc line and start levophed. Continue current treatments.
--- NOTE | 2020-08-01 16:35 | NUR ---
3725- Nurse updated patients Antione IRELAND on blood pressure, prone status, current condition, and physician request for a central line for pressors. Risks and benefits reviewed with Antione, she expressed to go ahead and place picc line.
--- NOTE | 2020-08-01 17:20 | NUR ---
Waiting for levophed and picc line being placed. Will resume blood pressures and start levophed once line is placed and levophed arrives.
--- NOTE | 2020-08-01 17:28 | NUR ---
CALLED TO ICU TO PLACE PICC FOR PT IN PRONE POSITION WITH LOW BP. PT'S LABS,MEDS,HX ORDER AND CONSENT VERIFIED. FARHAT OVERTON WAS WIDELY PATENT WITH USG. 5FR TL POWER PICC TRIMMED TO 40CM EXTERNAL 1CM. STAT CXR ORDERED, DONE IN PRONE POSITION.
--- NOTE | 2020-08-01 17:45 | NUR ---
CXR PICC TOO DEEP, WITHDREW FOR TOTAL OF 5CM. NO BLEEDING GAUZE REMOVED. PICC RELEASED FOR IMMEDIATE USE PER PROTOCOL TO JOANN MENDOZA
[2020-08-02] VITALS (122 sets, daily range): BP systolic 75–207; BP diastolic 40–88
[2020-08-02 10:13] LABS: BE(vivo) 6.5 mmol/L (-2 to +3); HCO3 31.1 mmol/L (22.0-26.0); PCO2 45.2 mmHg (35.0-45.0); pH 7.455 (7.360-7.450); sO2 83.7 % (92.0-98.0)
[2020-08-02 10:16] LABS: PO2 45.9 mmHg (80.0-100.0)
--- NOTE | 2020-08-02 18:24 | NUR ---
08/02/[address] ROY AT BEDSIDE. FI02 INCREASED TO 100% & PEEP TO 14. PATIENT REMAINED HYPOXIC. VERSED GTT STARTED, FENTANYL GTT INCREASED PER ORDER. CHEST XR AND ABG OBTAINED PER ORDERS. PATIENT'S OXYGEN SATURATION EVENTUALLY INCRESED TO >94%. ONCE STABLE, PATIENT PRONED AT 1700. DR. ROY UPDATED MULTIPLE TIMES THROUGHOUT DAY VIA PHONE. PATIENT'S DAUGHTER UPDATED TWICE TODAY.
[2020-08-03] VITALS (101 sets, daily range): BP systolic 107–143; BP diastolic 50–72
--- NOTE | 2020-08-03 06:44 | NUR ---
PATIENT REMAINS ON THE VENT. TOLERATING PRONNING WELL.AFEBRILE. HYPOTENSIVE. LEVO GTT. VSS. FAMILY UPDATED. WILL KEEP MONITORING.
[2020-08-03 09:25] LABS: HEMOGLOBIN 6.5 gm/dL (12.0-15.0); MONOCYTES 1.6 % (1.0-8.0); WBC 7.7 thou/uL (4.0-11.0)
[2020-08-03 09:28] LABS: ABSOLUTE NEUTROPHILS 6.8 thou/uL (1.4-8.2); BASOPHILS 0.2 % (0.0-2.0); EOSINOPHILS 3.8 % (0.0-3.0); HEMATOCRIT 20.2 % (37.0-47.0); LYMPHOCYTES 5.4 % (24.0-44.0); MCH 31.2 pg (26.0-34.0); MCV 97.6 fL (80.0-100.0); PLATELET COUNT 168 thou/uL (150-400); RBC 2.07 mil/uL (4.20-5.00); RDW 17.3 % (10.5-14.5)
[2020-08-03 12:18] LABS: CALCIUM 7.5 mg/dL (8.5-10.1); CREATININE 0.4 mg/dL (0.6-1.0); POTASSIUM 3.7 mmol/L (3.5-5.1)
--- NOTE | 2020-08-03 13:30 | NUR ---
PT IS PROGRESSING TOWARDS DISCHARGE, PT SEEN BY / TODAY IT WAS DISCUSSED IN THE MORNING WITH /RT THE ABNORMALITY OF BREATHING PATTERN, WHERE PT WOULD STACK TWO BREATHS WHICH APPEARS UNCOFORTABLE. AT 1010 RN SPOKE WITH THE DAUGHTER OF THE PT, PROVIDED CLINICAL UPDATE. PRIMARY QUESTION FROM THE DAUGHTER WAS WHETHER Q8H PRONING WAS POSSIBLE, RN EXPLAINED THAT THERE WERE NO ORDERS TO DO IT SUCH AND WOULD BE MORE DIFFICULT HAVING ONE PERSON BE ON DIFFERENT SCHEDULE AND WELL IT WOULD HAVE TO BE DR DRIVEN. PT'S DAUGHTER VERBALIZED UNDERSTANDING. PT IS BEING PRONED, WAS PRONED AT 1200, TUBE FEEDING IS STILL RUNNING AT THIS TIME, RESIDULA AT THE MORNING WAS 225. RN CONTINUING TO MONITOR AT THIS TIME
--- NOTE | 2020-08-03 14:06 | NUR ---
ON-GOING ASSESSMENT: CM REVIEWED CHART AND SPOKE WITH ATTENDING. PT IS BEING PRONED. PT REMAINS ON THE VENT. PT IS NOT MEDICALLY STABLE TO TRANSFER AT THIS TIME TO LTAC DUE TO RESPIRATORY STATUS. NO PLANS FOR WEEKEND DISCHARGE. CM SPOKE WITH PTS DAUGHTER TO UPDATE WELL LIASON FROM [facility]. SHE REPORTS SHE DOES NOT NEED UPDATES AT THIS TIME AND WILL FOLLOW UP ON THURSDAY. CM WILL CONTINUE TO FOLLOW TO ASSIST NEEDED.
[2020-08-04] VITALS (14 sets, daily range): BP systolic 97–165; BP diastolic 50–62
[2020-08-04 04:27] LABS: ANION GAP < 0 mmol/L (7-16); BUN 28 mg/dL (7-18); CALCIUM 8.1 mg/dL (8.5-10.1); CHLORIDE 99 mmol/L (98-107); CO2 42 mmol/L (21-32); CREATININE 0.5 mg/dL (0.6-1.0); GLUCOSE 252 mg/dL (74-106); MAGNESIUM 1.9 mg/dL (1.8-2.4); POTASSIUM 4.3 mmol/L (3.5-5.1); SODIUM 138 mmol/L (136-145)
[2020-08-04 06:36] LABS: HEMOGLOBIN 6.7 gm/dL (12.0-15.0); RDW 17.5 % (10.5-14.5)
[2020-08-04 06:37] LABS: ABSOLUTE NEUTROPHILS 6.6 thou/uL (1.4-8.2); BASOPHILS 0.1 % (0.0-2.0); EOSINOPHILS 0.1 % (0.0-3.0); HEMATOCRIT 21.1 % (37.0-47.0); LYMPHOCYTES 3.1 % (24.0-44.0); MCH 31.4 pg (26.0-34.0); MCHC 31.9 g/dL (28.0-37.0); MCV 98.4 fL (80.0-100.0); MONOCYTES 1.6 % (1.0-8.0); PLATELET COUNT 175 thou/uL (150-400); POLYS 95.1 % (36.0-66.0); RBC 2.14 mil/uL (4.20-5.00)
--- NOTE | 2020-08-04 10:14 | NUR ---
PT'S DAUGHTER DAWOOD CAME TO SEE THE PT TODAY PER VISTATION GUIDELINE, RN TOOK THE TIME TO EXPLAIN THE CURRENT CLINICAL PICTURE WHEN ESCORTING THE DPOA FROM THE ED TO THE UNIT. DPOA SPOKE UNDERSTANDING OF CURRENT SITUATION AND IT WAS ALSO TOLD BY THAT HE HAD BEEN WORKING/SPEAKING WITH THE DTR FOR AWHILE AND THIS VISITATION MAY HELP THE DTR COME TO AN UNDERSTANDING OF CURRENT CLINICAL PICTURE. IT WAS SEEN THAT RT HAD PROVIDED EDUCATION TO THE DTR WELL WHILE SHE WAS IN ROOM. ALL APPROPERIATE PPE WERE DONNED. APPROXIMATE TIME OF STAY WAS 0015 MINUTES, THEN SHE WAS ESCORTED OUT WELL. RN WORKING WITH RT TO SEE HOW PT'S FIO2 CAN BE TITRATED APPROPERIATELY. CURRENTLY MOVED FROM 80% TO 75% AT THIS TIME. CONTINUING TO MONITOR, WILL UPDATE NEEDED.
[2020-08-05] VITALS (43 sets, daily range): BP systolic 98–201; BP diastolic 47–91
--- NOTE | 2020-08-05 06:00 | NUR ---
REMAINS TRACHED AND VENTED. SEDATED WITH VERSED 5 MG FENTANYL 100 MCG PRECEDEX GTT FOLLOWS NO COMMANDS. SINUS RHYTHM PRONED UNTIL 0100. BATHED. REMAINS IN R/O CIFF ISOLATION. UO 2000 CC THIS SHIFT. WILL CONT TO MONITOR.
[2020-08-05 09:47] LABS: MCH 31.1 pg (26.0-34.0); MCHC 31.3 g/dL (28.0-37.0); MCV 99.2 fL (80.0-100.0); RBC 1.94 mil/uL (4.20-5.00)
[2020-08-05 09:48] LABS: RDW 17.5 % (10.5-14.5); WBC 5.2 thou/uL (4.0-11.0)
[2020-08-05 09:51] LABS: HEMATOCRIT 19.3 % (37.0-47.0)
[2020-08-05 10:06] LABS: ALBUMIN 2.5 g/dL (3.4-5.0); ANION GAP < 0 mmol/L (7-16); BUN 37 mg/dL (7-18); CALCIUM 7.7 mg/dL (8.5-10.1); CHLORIDE 104 mmol/L (98-107); CO2 39 mmol/L (21-32); CREATININE 0.3 mg/dL (0.6-1.0); GLUCOSE 242 mg/dL (74-106); POTASSIUM 4.3 mmol/L (3.5-5.1); SGOT 43 U/L (15-37); SGPT 97 U/L (14-59); SODIUM 142 mmol/L (136-145); TOTAL BILIRUBIN 0.2 mg/dL (0.2-1.0); TOTAL PROTEIN 5.3 g/dL (6.4-8.2)
--- NOTE | 2020-08-05 10:40 | NUR ---
PT IS NOT PROGRESSING TOWARDS DISCHARGE, PT SEEN BY AT THIS TIME. H/H WAS CRITICALLY LOW THIS MORNING, ORDERS GIVEN TO TRANSFUSE A SINGLE UNIT AT THIS TIME. PT ALSO WASN'T READING TEMPERATURE AXILLARY THIS MORNING AND WHEN DONE ORALLY SHOWED 92.4 RN STARTED MARIA E LENINER TREATMENT. AT 0915 UPDATE WAS PROVIDED TO DTR/SHU SEAY REGARDING CURRENT CLINICAL PICTURE/VENT SETTING/ WELL PLANS FOR THE DAY. LATER DAWOOD WAS REACHED OUT TO AND CONSENT FOR TRANSFUSION WAS RECEIVED W/ HELP OF KELLY MIRELES
[2020-08-05 16:38] LABS: HEMATOCRIT 24.8 % (37.0-47.0)
[2020-08-05 16:39] LABS: HEMOGLOBIN 8.1 gm/dL (12.0-15.0)
[2020-08-05 19:42] LABS: BE(vivo) 12.7 mmol/L (-2 to +3); pH 7.371 (7.360-7.450); sO2 83.4 % (92.0-98.0)
[2020-08-05 19:43] LABS: PCO2 70.6 mmHg (35.0-45.0); PO2 50.9 mmHg (80.0-100.0)
[2020-08-06] VITALS (25 sets, daily range): BP systolic 114–201; BP diastolic 47–101
[2020-08-06 06:46] LABS: ABSOLUTE NEUTROPHILS 9.6 thou/uL (1.4-8.2); BASOPHILS 0.1 % (0.0-2.0); EOSINOPHILS 0.1 % (0.0-3.0); HEMATOCRIT 26.5 % (37.0-47.0); HEMOGLOBIN 8.5 gm/dL (12.0-15.0); LYMPHOCYTES 5.2 % (24.0-44.0); MCH 30.2 pg (26.0-34.0); MCHC 32.1 g/dL (28.0-37.0); MONOCYTES 2.5 % (1.0-8.0); PLATELET COUNT 210 thou/uL (150-400); POLYS 92.1 % (36.0-66.0); RBC 2.83 mil/uL (4.20-5.00); RDW 20.2 % (10.5-14.5); WBC 10.4 thou/uL (4.0-11.0)
[2020-08-06 06:49] LABS: MCV 93.9 fL (80.0-100.0)
[2020-08-06 06:55] LABS: ALBUMIN 2.8 g/dL (3.4-5.0); CALCIUM 8.8 mg/dL (8.5-10.1); CREATININE 0.6 mg/dL (0.6-1.0); TOTAL BILIRUBIN 0.2 mg/dL (0.2-1.0)
[2020-08-06 07:09] LABS: POTASSIUM 5.3 mmol/L (3.5-5.1)
[2020-08-06 07:16] LABS: BE(vivo) 13.6 mmol/L (-2 to +3); HCO3 43.2 mmol/L (22.0-26.0); PO2 89.9 mmHg (80.0-100.0)
[2020-08-06 07:17] LABS: pH 7.267 (7.360-7.450)
--- NOTE | 2020-08-06 07:53 | NUR ---
SEE [employer] FOR CURRENT ASSESSMENT. PT REMAINS SEDATED WITH MULTIPLE MEDICATION GTT. ON PC MODE OF VENT WITH FI02 AT 100%, 02SAT IMPROVED TO 96%-NO SOME SUBQ VIA NECK, NO PROGRESSION OF SUBQ AIR NOTED AT THIS TIME. PANCHO TF. NEGATIVE CDIFF RESULTED. CONT PLAN OF CARE. DAUGHTER UPDATE X2 THIS SHIFT
[2020-08-06 10:24] LABS: ANISOCYTOSIS 2+
[2020-08-06 10:25] LABS: POLYCHROMASIA OCCASIONAL
--- NOTE | 2020-08-06 11:27 | NUR ---
chart review. cm provided updates to [facility]. trach/peg with vent support. noted bedside staff cont to provide update to pt daughter valentin. will cont following as needed for dc needs.
--- NOTE | 2020-08-06 14:58 | NUR ---
PT VENTILATED AND SEDATED WITH TRACH IN PLACE. PT WAS PRONED AT 1330, PT TOLERATING WELL. SEDATION IS BEING ATTEPTED TO BE TITRATED DOWN PT TOLERATES. PT CONTINUES TO BE NON-RESPONSIVE WHILE ON SEDATION. VENT SETTINGS CHANGED BY RT. AFEBRILE, POLYUREA, TUBE FEEDINGS DECREASED DUE INCREASING RESIDUALS. INSULIN SLIDING SCALE WAS DECREASED. FMS IN PLACE WITH MINIMAL DRAINAGE. PT AND FAMILY HAVE BEEN UPDATED AND EDUCATED ON PT CONDITION AND POC. FAMILY TO COME TO BEDSIDE THIS AFTERNOON. PT NOT PROGRESSING TOWARDS POC.
[2020-08-07] VITALS (25 sets, daily range): BP systolic 109–189; BP diastolic 52–93
[2020-08-07 04:55] LABS: BE(vivo) 11.5 mmol/L (-2 to +3); HCO3 38.3 mmol/L (22.0-26.0); PCO2 65.2 mmHg (35.0-45.0); PO2 78.9 mmHg (80.0-100.0); pH 7.387 (7.360-7.450); sO2 95.1 % (92.0-98.0)
[2020-08-07 05:55] LABS: ABSOLUTE NEUTROPHILS 8.7 thou/uL (1.4-8.2); BASOPHILS 0.2 % (0.0-2.0); EOSINOPHILS 0.1 % (0.0-3.0); HEMATOCRIT 27.2 % (37.0-47.0); HEMOGLOBIN 8.8 gm/dL (12.0-15.0); LYMPHOCYTES 3.8 % (24.0-44.0); MCH 30.2 pg (26.0-34.0); MCHC 32.2 g/dL (28.0-37.0); MCV 93.6 fL (80.0-100.0); MONOCYTES 1.5 % (1.0-8.0); PLATELET COUNT 187 thou/uL (150-400); POLYS 94.4 % (36.0-66.0); RDW 18.7 % (10.5-14.5); WBC 9.2 thou/uL (4.0-11.0)
[2020-08-07 06:18] LABS: ALBUMIN 2.5 g/dL (3.4-5.0); CALCIUM 9.1 mg/dL (8.5-10.1); CREATININE 0.4 mg/dL (0.6-1.0); POTASSIUM 5.2 mmol/L (3.5-5.1); TOTAL BILIRUBIN 0.2 mg/dL (0.2-1.0); TOTAL PROTEIN 5.7 g/dL (6.4-8.2)
--- NOTE | 2020-08-07 15:45 | NUR ---
FAXED CLINICAL UPDATE TO [facility] RECEIVED CONFIRMATION AND LEFT MSG WITH ADM.
--- NOTE | 2020-08-07 18:44 | NUR ---
PT PRONED AT 1330 TODAY. PT HAS BEEN TACHYCARDIC AND HYPERTENSIVE AFTER TURNING. FAILURE TO TITRATE DOWN THE SEDATION. PT WAS TACHYPNEIC WITH DECREASE IN SEDATION.HIGH TUBE FEED RESIDUALS. REAGLAN STARTED. LOVENOX RESTARTED WELL. CONTINUE TO MONITOR.
[2020-08-08] VITALS (36 sets, daily range): BP systolic 82–191; BP diastolic 38–97
--- NOTE | 2020-08-08 00:37 | NUR ---
SPOKE WITH PTS DTR THIS EVENING. SHE SUGGESTED THAT WE TRY HER MOTHER AT 90% FiO2. SHE WILL CALL BACK IN THE MORNING TO CHECK AGAIN ON HER MOTHER.
--- NOTE | 2020-08-08 15:13 | NUR ---
CM sent update to [facility] today. Review of case and notes and shows prone positioning continues with IV ABT's, continued supportive care, mechanical ventilation and nutritional support. Daughter Antione at [phone] continues as the point of contact.
[2020-08-09] VITALS (98 sets, daily range): BP systolic 57–190; BP diastolic 30–86
[2020-08-09 04:51] LABS: ALBUMIN 2.6 g/dL (3.4-5.0); CALCIUM 8.7 mg/dL (8.5-10.1); CREATININE 0.4 mg/dL (0.6-1.0); PHOSPHORUS 2.4 mg/dL (2.5-4.9); POTASSIUM 4.9 mmol/L (3.5-5.1)
[2020-08-09 05:04] LABS: HEMATOCRIT 30.9 % (37.0-47.0); HEMOGLOBIN 9.9 gm/dL (12.0-15.0); MCH 29.6 pg (26.0-34.0); MCV 92.4 fL (80.0-100.0); RBC 3.35 mil/uL (4.20-5.00)
--- NOTE | 2020-08-09 07:20 | NUR ---
PATIENT REMAINS ON THE VENT. FENTANYL, VERSED, PRECEDEX FOR SEDATION. AT APPROX 0550 PATIENT GETS RESTLESS. ATIIVAN GIVEN ORDERED. PATIENT REMAINS RESTLESS. DESATS TO L0W 80S. HR UP TO 120S. DR ROY NOTIFIED. ORDER TO PRONE THE PT GIVEN. PROPOFOL RESTARTED PER DR ROY ORDERS. AFTER PRONNING. SATS UP TO 95, HR DOWN TO 110S. FAMILY UPDATED. REPORT GIVEN TO ONCOMING RN.
--- NOTE | 2020-08-09 07:27 | NUR ---
PT BP UP TO [id number] DURING THIS TOD. ROLLER SKATE REPAIRER INFORMED. ORDER FOR HYDRALAZINE PRN GIVEN.
--- NOTE | 2020-08-09 10:44 | NUR ---
ASSUMED CARE AT 0700. PATIENT'S DAUGHTER VISITED FROM [phone] IN ROOM WITH GLOVES AND MASK ON. SHE WAS UPDATED ON THE PATIENT'S CONDITION AND PLAN OF CARE.
[2020-08-09 11:07] LABS: BE(vivo) 3.7 mmol/L (-2 to +3); HCO3 30.9 mmol/L (22.0-26.0); PCO2 59.4 mmHg (35.0-45.0); PO2 58.7 mmHg (80.0-100.0); pH 7.334 (7.360-7.450); sO2 88.1 % (92.0-98.0)
[2020-08-10] VITALS (147 sets, daily range): BP systolic 61–176; BP diastolic 27–94
[2020-08-10 03:51] LABS: BE(vivo) 0.9 mmol/L (-2 to +3); HCO3 29.9 mmol/L (22.0-26.0); PCO2 72.9 mmHg (35.0-45.0); PO2 90.3 mmHg (80.0-100.0); pH 7.231 (7.360-7.450)
--- NOTE | 2020-08-10 04:44 | NUR ---
PATIENT REMAINS ON THE VENT. VERSED, FENTANYL, PRECEDEX FOR SEDATION. AFEBRILE. HYPOTENSIVE ON LEVOPHED. PERSISTENT HYPOTENSIVE ORDER FOR CASTRO RECEIVED FROM OPERATIONS SECTION MANAGER. CRITICAL ABG CALLED TO DR ROY. ORDERS FOR LASIX AND BICARB GIVEN. PT NOT PRONNED THIS TOD PER DR ROY ORDERS. FAMILY UPDATED. WILL KEEP MONITORING.
--- NOTE | 2020-08-10 10:06 | NUR ---
Nutrition: High residuals with need to hold TF or run at lower rate. REC change formula to Vital 1.2 to reach 50 mL/hr if possible with propofol D/C. Can run at lower rate as more concentrated formula. Also rec re-evaluate fluid needs. Has IVFS and water flushes ordered. + edema and significant weight gains.
--- NOTE | 2020-08-10 12:55 | NUR ---
chart review. noted cont vent support, trach and peg. gtts for bp support. updates to [facility]. cm sent message to MD to see when she will possible be ready for [facility]. bedside nurse provide update to daughter valentin. no anticipated weekend dc. will cont following as needed for dc needs.
--- NOTE | 2020-08-10 13:42 | NUR ---
ASSUMED CARE AT 0700. PATIENT'S DAUGHTER, DAWOOD, CALLED AT [phone] AND SHE WAS UPDATED AND EDUCATED ON PATIENT'S CONDITION AND PLAN OF CARE.
[2020-08-10 17:05] LABS: URINE BILIRUBIN NEGATIVE (Negative); URINE BLOOD 3+ (Negative); URINE COLOR YELLOW; URINE GLUCOSE-RANDOM* NEGATIVE (Negative); URINE KETONES NEGATIVE (Negative); URINE LEUKOCYTES-REFLEX NEGATIVE (Negative); URINE NITRITE-REFLEX NEGATIVE (Negative); URINE PROTEIN (DIPSTICK) TRACE (Negative); URINE SPECIFIC GRAVITY >= 1.030 (1.005-1.035); URINE UROBILINOGEN 0.2 E.U./dl (0.2-1.0)
[2020-08-10 17:06] LABS: URINE CLARITY HAZY
[2020-08-10 17:14] LABS: SQUAMOUS 0-3 Few /LPF (0-3)
[2020-08-10 17:15] LABS: BACTERIA-REFLEX >30 Many /HPF (None Seen); CRYSTALS None Seen /LPF (None Seen); HYALINE CASTS 0-3 Few /LPF (None Seen); URINE RBC 3-10 Few /HPF (0-2); URINE WBC-REFLEX 0-5 Rare /HPF (0-5)
[2020-08-11] VITALS (131 sets, daily range): BP systolic 98–158; BP diastolic 31–58
[2020-08-11 04:50] LABS: ABSOLUTE NEUTROPHILS 3.6 thou/uL (1.4-8.2); BASOPHILS 0.8 % (0.0-2.0); EOSINOPHILS 0.3 % (0.0-3.0); HEMATOCRIT 28.2 % (37.0-47.0); LYMPHOCYTES 3.6 % (24.0-44.0); MCH 30.2 pg (26.0-34.0); MCV 94.1 fL (80.0-100.0); MONOCYTES 0.8 % (1.0-8.0); PLATELET COUNT 197 thou/uL (150-400); POLYS 94.5 % (36.0-66.0); RBC 2.99 mil/uL (4.20-5.00); WBC 3.9 thou/uL (4.0-11.0)
[2020-08-11 05:03] LABS: INR 1.4; PROTIME 15.1 Seconds (9.3-11.4)
[2020-08-11 05:04] LABS: ALBUMIN 1.3 g/dL (3.4-5.0); ANION GAP 10 mmol/L (7-16); BUN 35 mg/dL (7-18); CHLORIDE 91 mmol/L (98-107); CO2 26 mmol/L (21-32); CREATININE 1.3 mg/dL (0.6-1.0); GLUCOSE 99 mg/dL (74-106); POTASSIUM 5.7 mmol/L (3.5-5.1); SGOT 36 U/L (15-37); SGPT 28 U/L (30-65); SODIUM 127 mmol/L (136-145); TOTAL BILIRUBIN 0.2 mg/dL (0.2-1.0); TOTAL PROTEIN 4.9 g/dL (6.4-8.2)
[2020-08-11 05:53] LABS: BE(vivo) -2.4 mmol/L (-2 to +3); HCO3 26.5 mmol/L (22.0-26.0); PCO2 69.3 mmHg (35.0-45.0); PO2 93.6 mmHg (80.0-100.0); sO2 95.2 % (92.0-98.0)
--- NOTE | 2020-08-11 18:48 | NUR ---
08/11/20 WEANED PRESSORS THROUGHOUT DAY. ENDED AT 10MCG OF LEVO AND 50 OF CASTRO. WEANED TO MINIMAL SEDATION 25MCG OF FENTANYL AND 0.2 OF PRECEDEX. AT 1600 PT OPENED EYES TO COMMAND. PT NOT MOVING ANY EXTREMITIES. FIO2 WEANED TO 80%. ONLY 100 CC OF URINE OUT DURING SHIFT. TUBE FEEDINGS STILL BEING HELD AT THIS TIME. ABD DISTENDED, NO BOWEL MOVEMENT, STOOL SOFTENERS GIVEN. 550 CC OF RESIDUAL REMAINING WHEN CHECKED AT 1200. HYPOGLYCEMIC AT 1800, DEXTROSE GIVEN. SPOKE WITH PTS DAUGHTER DAWOOD ON THE MULTIPLE TIMES THROUGHOUT DAY ON THE PHONE AND IN PERSON DURING HER 15 MIN VISIT. AT 1815 THE PATIENTS DAUGHTER, DAWOOD, CALLED AND ASKED THAT THE PATIENT'S CODE STATUS BE CHANGED TO DNR. CALLING DR. ROY TO VERIFY THIS.
--- NOTE | 2020-08-11 20:00 | NUR ---
ASSUMED CARE OF PT. MADE A DNR PER FAMILY AND DR ROY.
[2020-08-12] VITALS (145 sets, daily range): BP systolic 95–161; BP diastolic 36–59
[2020-08-12 05:43] LABS: ALBUMIN 1.3 g/dL (3.4-5.0); CALCIUM 8.2 mg/dL (8.5-10.1); CREATININE 1.8 mg/dL (0.6-1.0); MAGNESIUM 2.3 mg/dL (1.8-2.4); TOTAL BILIRUBIN 0.3 mg/dL (0.2-1.0); TOTAL PROTEIN 5.2 g/dL (6.4-8.2)
--- NOTE | 2020-08-12 06:00 | NUR ---
REMAINS TRACHED AND VENTED. FENTANYL AND PRECEDEX FOR SEDATION. LEVOPHED AND CASTRO FOR BP SUPPORT. REMAINS A DNR. SPOKE AT LENGTH WITH PTS DAUGHTER TREY WILL BE IN AT 0900 THIS AM TO SEE PT. NO COUGH NOR GAG REFLEX. FOLLOWS NO COMMANDS. BATHED FREQ ORAL CARE GIVEN. ONLY 10 CC UO THIS SHIFT NOT PROGRESSING TOWARD GOALS
--- NOTE | 2020-08-12 10:32 | NUR ---
DR PENA PAGED THAT PT'S DAUGHTER IS BEDSIDE. DR BRAND CAME TO PT'S ROOM AND DISCUSSED COMFORT CARE WITH DAUGHTER. PT IS NO CODE BUT NO COMFORT DECISIONS HAVE BEEN MADE AT THIS TIME.
--- NOTE | 2020-08-12 17:48 | NUR ---
PT REMAINS TRACHED AND VENTED. PT IS ON 80%FIO2 AND IS CURRENTLY NOT PROGRESSING TOWARDS GOALS. PT REMAINS ON LEVOPHED AND CASTRO FOR BP SUPPORT, SEE MAR. PT HAD LARGE AMOUNT OF BROWN LIQUID OUT OF G TUBE 1724. G TUBE IS NOT BEING USED AT THIS TIME DUE TO HIGH RESIDUALS GREATER THAN 2 DAYS AND IS CURRENTLY ON LIS.
[2020-08-13] VITALS (130 sets, daily range): BP systolic 81–140; BP diastolic 33–61
[2020-08-13 04:49] LABS: ALBUMIN 1.2 g/dL (3.4-5.0); CALCIUM 8.2 mg/dL (8.5-10.1); TOTAL BILIRUBIN 0.3 mg/dL (0.2-1.0); TOTAL PROTEIN 5.2 g/dL (6.4-8.2)
[2020-08-13 05:01] LABS: HEMOGLOBIN 7.3 gm/dL (12.0-15.0); PLATELET COUNT 171 thou/uL (150-400); RBC 2.43 mil/uL (4.20-5.00); WBC 4.8 thou/uL (4.0-11.0)
[2020-08-13 05:04] LABS: MCH 30.1 pg (26.0-34.0); MCHC 33.1 g/dL (28.0-37.0); MCV 90.9 fL (80.0-100.0); RDW 20.1 % (10.5-14.5)
[2020-08-13 05:10] LABS: POTASSIUM 6.5 mmol/L (3.5-5.1)
--- NOTE | 2020-08-13 06:00 | NUR ---
REMAINS TRACHED AND VENTED FIO2 80 % PRECEDEX FENTANYL CASTRO AND LEVOPHED FOR BP SUPPORT/. CONT TO HAVE NO COUGH NOR GAG REFLEX REMAINS A DNR. AWAITING SON TO COME TONIGHT FROM [place]/. THEN MAY MAKE A DECISION FOR POSSIBLE COMFORT CARE. SPOKE WITH TREY PTS DTR AT LENGTH THIS EVENING NOT PROGRESSING TOWARD GOALS WILL CONT TO MONITOR
--- NOTE | 2020-08-13 09:15 | NUR ---
chart review, trach/peg with vent support. cm provided verbal update, daughter valentin updated by MD and bedside nurse. will cont following as needed for dc needs.
--- NOTE | 2020-08-13 10:08 | NUR ---
THIS RN RECEIVD CRITICAL VALUE FROM LAB AT 1005. CRITICAL VALUE RELAYED TO PRIMARY NURSE, JENNIFER.
[2020-08-13 11:55] LABS: ABSOLUTE NEUTROPHILS 3.8 thou/uL (1.4-8.2); METAMYELOCYTES 6 %; MYELOCYTES 2 %; NUCLEATED RBCS 2 /100WBC; PLATELET ESTIMATE NORMAL
--- NOTE | 2020-08-13 16:00 | NUR ---
daughter valentin here and requested letter for her mom, saying that she is unable to participate in any discussion rt her medical condition. cm team provided her with letter of request. will cont following as needed for dc needs.
--- NOTE | 2020-08-13 18:24 | NUR ---
08/13/20 ASSUMED CARE OF PATIENT FROM [id number]. PATIENT REMIANS ON LEVO, CASTRO, PRECEDEX, FENTANYL. 0900 POTASSIUM CRITICALLY HIGH AT 6.3. DR. BRAND NOTIFIED AND KAYEXALATE GIVEN PER ORDERS. AT 1700 POTASSIUM WAS CRITICALLY HIGH AT 6.2. DR. BRAND NOTIFIED BY PHONE AND NO NEW ORDERS PLACED. TUBE FEEDS REMAIN ON HOLD. PEG TUBE TO LIS, 550 CC TOTAL REMOVED DURING SHIFT. PATIENT CONTINUES TO MAKE MINIMAL URINE, 20 CC OF URINE FOR SHIFT. PROVIDERS AWARE. PATIENT'S DAUGHTER DAWOOD UPDATED OVER THE PHONE. DAWOOD VISITED FOR 15 MIN AND WAS UPDATED AT THAT TIME WELL. WILL CONTINUE TO MONITOR.
[2020-08-14] VITALS (72 sets, daily range): BP systolic 94–137; BP diastolic 34–59
--- NOTE | 2020-08-14 00:32 | NUR ---
1018 - SPOKE WITH DAUGHTER IN DEPTH ABOUT PTS CURRENT STATUS. ALL QUESTIONS ANSWERED. DAUGHTER ASKING ABOUT COMFORT CARE AND HOW MANY FAMILY MEMBERS WILL BE ABLE TO BE PRESENT WITH PT. THIS RN INSTRUCTED DAUGHTER THAT SHE WOULD PASS THE QUESTION ONTO THE DAYSHIFT RN AND IT WILL HAVE TO BE DECIDED BY NURSE DYE EXPERT/CNO. 1150 - DURING ASSESSMENT IT WAS NOTED THAT PT BEGAN TO DEVELOP SUBQ AIR ALONG THE RIGHT SIDE OF HER NECK/FACE/EYE. THERE WAS NO CHANGE IN PTS VITAL SIGNS. DR. MAYS WAS NOTIFIED OF THE FINDINGS AND MADE AWARE OF VENT SETTINGS. NO ORDERS RECEIVED. 0000 - CALLED DAUGHTER TO UPDATE ON PTS CONDITION. DAUGHTER REPORTS THAT HER BROTHER IS DRIVING IN FROM [place] AND WILL BE HERE AROUND 3 PM AND WOULD LIKE TO SEE HIS MOM BEFORE THEY DECIDE ON A TIME TO MAKE THE PT COMFORT CARE.
[2020-08-14 05:42] LABS: MCH 29.8 pg (26.0-34.0)
[2020-08-14 05:44] LABS: HEMATOCRIT 23.4 % (37.0-47.0); HEMOGLOBIN 7.7 gm/dL (12.0-15.0); MCHC 32.9 g/dL (28.0-37.0); MCV 90.7 fL (80.0-100.0); RBC 2.58 mil/uL (4.20-5.00); RDW 19.6 % (10.5-14.5); WBC 6.4 thou/uL (4.0-11.0)
[2020-08-14 06:05] LABS: CALCIUM 7.9 mg/dL (8.5-10.1); CREATININE 2.3 mg/dL (0.6-1.0)
[2020-08-14 06:18] LABS: POTASSIUM 6.5 mmol/L (3.5-5.1)
--- NOTE | 2020-08-14 16:28 | NUR ---
PT WAS MADE COMFORT CARE AT 1621. PT WAS GIVEN 4MG OF MORPHINE PRIOR TO DISCONNECTION FROM VENTILATOR. DAUGHTER AND SON AT BEDSIDE.
--- NOTE | 2020-08-14 16:50 | NUR ---
PT AT [address] MARCELO WAS TEXTED VIA [employer].
--- NOTE | 2020-08-23 18:38 | PATH ---
[place] [address] PATHOLOGY RPT PROCEDURE Name: JOYA BOND Room #: 241-P DIS IN M.R.#: [id number] Admission: 07/04/20 Date of : 51 Discharge: 08/14/20 Report #: [id number] Path Case #: [id number] Note [facility] Accession Number: [id number] TESTS RESULT FLAG UNITS REF RANGE LAB Source: RT BRONCH WASH DIAGNOSIS: RT BRONCH WASH NEGATIVE FOR MALIGNANT CELLS. NORMAL BRONCHIAL CELLS AND MACROPHAGES ARE PRESENT. PULMONARY MACROPHAGES (DUST CELLS) ARE PRESENT. THIS INTERPRETATION INCLUDES EVALUATION OF A CELL BLOCK. Addendum: 02 NILM for Silver stain on bronch MBR/08/14/2020 Addendum Electronically Signed by Keenan Bowie MD. Pathologist Signed out by: 02 Keenan Bowie MD, Pathologist NPI- [id number] Performed by: Sienna Gunter, Forest Pathologist ([facility]) Gross description: 01 17ML, RED, 1TP 1CB /LCS 08/02/2020 0754 Local FLAG LEGEND: L-Low Normal,H-High Normal,LL-Alert Low,HH-Alert High <-Panic Low,>-Panic High,A-Abnormal,AA-Critical Abnormal Performed at: [address] [place] [address] Keenan Bowie MD, [address] [address] Cecily Mota MD, Performed at: [address], [place], [place] [id number] MD Keenan Bowie MD Phone: [phone]
== END 2020-08-14 16:38 | DRG 4 ==
LOC: ER 19:46 → EROBS 21:14 → ICU 21:14
PROVIDERS: Emergency Medicine; Hospitalist; Internal Medicine; Internal Medicine Pulmonary Disease; Nurse Practitioner Family; Pediatrics; Specialist; ADMIT Hospitalist; ATTEND Hospitalist
PROC: 5A1955Z Respiratory Ventilation, Greater than 96 Consecutive Hours (ICD-10-PCS; principal; 2020-07-05)
PROC: 0BH18EZ Insertion of Endotracheal Airway into Trachea, Via Natural or Artificial Opening Endoscopic (ICD-10-PCS; principal; 2020-07-05)
PROC: XW033E5 Introduction of Remdesivir Anti-infective into Peripheral Vein, Percutaneous Approach, New Technology Group 5 (ICD-10-PCS; principal; 2020-07-05)
PROC: 5A0935A Assistance with Respiratory Ventilation, Less than 24 Consecutive Hours, High Flow/Velocity Cannula (ICD-10-PCS; principal; 2020-07-05)
PROC: 02HV33Z Insertion of Infusion Device into Superior Vena Cava, Percutaneous Approach (ICD-10-PCS; principal; 2020-07-05)
PROC: B548ZZA Ultrasonography of Superior Vena Cava, Guidance (ICD-10-PCS; principal; 2020-07-05)
PROC: XW13325 Transfusion of Convalescent Plasma (Nonautologous) into Peripheral Vein, Percutaneous Approach, New Technology Group 5 (ICD-10-PCS; principal; 2020-07-05)
PROC: 0DH63UZ Insertion of Feeding Device into Stomach, Percutaneous Approach (ICD-10-PCS; 2020-07-25)
PROC: 0B110F4 Bypass Trachea to Cutaneous with Tracheostomy Device, Open Approach (ICD-10-PCS; 2020-07-25)
PROC: 0BJ08ZZ Inspection of Tracheobronchial Tree, Via Natural or Artificial Opening Endoscopic (ICD-10-PCS; 2020-08-01)
PROC: 02HV33Z Insertion of Infusion Device into Superior Vena Cava, Percutaneous Approach (ICD-10-PCS; 2020-08-01)
PROC: 30233N1 Transfusion of Nonautologous Red Blood Cells into Peripheral Vein, Percutaneous Approach (ICD-10-PCS; 2020-08-05)
DX: A41.9 Sepsis, unspecified organism (principal); U07.1 COVID-19; N17.0 Acute kidney failure with tubular necrosis; J12.82 Pneumonia due to coronavirus disease 2019; J80 Acute respiratory distress syndrome; G92 Toxic encephalopathy; E43 Unspecified severe protein-calorie malnutrition; J15.9 Unspecified bacterial pneumonia; R65.21 Severe sepsis with septic shock; T83.518A Infection and inflammatory reaction due to other urinary catheter, initial encounter; T80.219A Unspecified infection due to central venous catheter, initial encounter; N39.0 Urinary tract infection, site not specified; E87.1 Hypo-osmolality and hyponatremia; M06.9 Rheumatoid arthritis, unspecified; F41.9 Anxiety disorder, unspecified; F32.9 Major depressive disorder, single episode, unspecified; I10 Essential (primary) hypertension; E11.51 Type 2 diabetes mellitus with diabetic peripheral angiopathy without gangrene; I95.9 Hypotension, unspecified; R68.0 Hypothermia, not associated with low environmental temperature; E87.6 Hypokalemia; J98.2 Interstitial emphysema; D64.9 Anemia, unspecified; Z96.653 Presence of artificial knee joint, bilateral; Y83.8 Other surgical procedures as the cause of abnormal reaction of the patient, or of later complication, without mention of misadventure at the time of the procedure; Z79.899 Other long term (current) drug therapy; Z88.8 Allergy status to other drugs, medicaments and biological substances; Z68.30 Body mass index [BMI] 30.0-30.9, adult; Y92.89 Other specified places as the place of occurrence of the external cause
CPT/HCPCS: 10078; 27000; 50101; 50386; 50403; 56525; 62110; 62900; 85076